=== PATIENT | female | born 1945 | race Caucasian/White ===

== ENCOUNTER → 2017-09-12 | Outpatient (CLI) | payer MEDICARE, OTHER ==
[~2017-09-12] MED LIST: ACDPT PO; ALPR0.25 PO; ALPR0.5T PO; ASPI-84 PO; ASPI-983 PO; BUPR-42 PO; BUPR300T43 PO; CALC-913 PO; CALTRATE PO; CITA10TA PO; LEVO175T31 PO; MULT-974 PO; NAPR220T76; ZALE10CA10
--- NOTE | 2017-09-14 08:51 | Diagnostic Imaging Report ---
Bilateral screening mammogram 2D views with tomosynthesis The current study was also evaluated with a Computer Aided Detection (CAD) system. INDICATION: Screening. No current complaints stated on the questionnaire. COMPARISON: 09/11/16. FINDINGS: The breasts are composed of heterogeneously dense parenchyma which may decrease mammographic sensitivity. Punctate benign-appearing calcifications are seen. Allowing for technique and positional differences, no suspicious change is seen. IMPRESSION: Dense breasts with no definite change. ACR BI-RADS Category 2: Benign findings. Result letter will be mailed to the patient. Note: At least 10% of breast cancer is not imaged by mammography. Dictated by: Dictated on workstation # [id number]
== END ==
LOC: RAD 11:15
PROVIDERS: ATTEND Nurse Practitioner Family
DX: Z12.31 Encounter for screening mammogram for malignant neoplasm of breast (principal)
CPT/HCPCS: 77067

== ENCOUNTER → 2018-03-11 | Outpatient (CLI) | payer MEDICARE, OTHER ==
--- NOTE | 2018-03-11 14:57 | Diagnostic Imaging Report ---
PROCEDURE: CT head without contrast. TECHNIQUE: Multiple contiguous axial images were obtained through the brain without the use of intravenous contrast. INDICATION: Dizziness and headaches as well as blurred vision. COMPARISON: Prior head CT from 12/29/2009. FINDINGS: The ventricles and sulci are stable in appearance. No sulcal effacement is identified. There is no midline shift. No acute intra-axial or extra-axial hemorrhage is seen. The cisterns are patent. The visualized paranasal sinuses are clear. IMPRESSION: No acute intracranial process is detected. Dictated by: Dictated on workstation # [id number]
== END ==
LOC: RAD 12:52
PROVIDERS: ATTEND Nurse Practitioner Family
DX: H53.8 Other visual disturbances (principal); R42 Dizziness and giddiness; R51 Headache
CPT/HCPCS: 70450

== ENCOUNTER → 2018-09-13 | Outpatient (CLI) | payer MEDICARE, OTHER ==
--- NOTE | 2018-09-13 11:55 | Diagnostic Imaging Report ---
INDICATION: Routine screening. Comparison is made with prior mammograms from 09/12/2017 and 09/11/2016. 2-D and 3-D bilateral screening mammography was performed with computer-aided detection (CAD) system. FINDINGS: Both breasts are heterogeneously dense, limiting the sensitivity of mammography. Benign calcifications are identified bilaterally. No dominant mass or malignant-appearing microcalcifications are seen. The axillae are unremarkable. IMPRESSION: No mammographic features suspicious for malignancy are identified. ACR BI-RADS Category 2: Benign findings. Result letter will be mailed to the patient. Note: At least 10% of breast cancer is not imaged by mammography. Dictated by: Dictated on workstation # [id number]
== END ==
LOC: RAD 09:48
PROVIDERS: ATTEND Nurse Practitioner Family
DX: Z12.31 Encounter for screening mammogram for malignant neoplasm of breast (principal)
CPT/HCPCS: 77067

== ENCOUNTER → 2018-10-18 | Outpatient (CLI) | payer MEDICARE, OTHER ==
--- NOTE | 2018-10-18 12:47 | Diagnostic Imaging Report ---
PROCEDURE: CT abdomen and pelvis without contrast. TECHNIQUE: Multiple contiguous axial images were obtained through the abdomen and pelvis without the use of intravenous contrast. INDICATION: Abdominal pain and constipation. No prior studies are available for comparison. The lung bases are clear. The liver and gallbladder are unremarkable. The pancreas and spleen are unremarkable. No adrenal mass is detected. No renal calculi or hydronephrosis is seen. Aorta is heavily calcified but nonaneurysmal. The visualized bowel loops are normal caliber. There is no obstruction. There is bkia-gx-odexcnfh amount of stool in the colon. No ascites is seen. Bladder is unremarkable. Bony structures demonstrate left convexity lumbar scoliotic curvature. Lumbar spondylosis. Severe degenerative changes of left hip are noted. IMPRESSION: Essentially unremarkable noncontrast CT of the abdomen and pelvis. No acute abnormality is detected. Dictated by: Dictated on workstation # [id number]
== END ==
LOC: RAD 12:20
PROVIDERS: ATTEND Nurse Practitioner Family
DX: K59.00 Constipation, unspecified (principal); R63.4 Abnormal weight loss; R10.9 Unspecified abdominal pain
CPT/HCPCS: 74176

== ENCOUNTER → 2018-11-18 | Outpatient (CLI) | payer MEDICARE, OTHER | LOC: CARD 12:47 | PROVIDERS: ATTEND Internal Medicine Cardiovascular Disease | DX: R07.9 Chest pain, unspecified (principal); I10 Essential (primary) hypertension; I08.1 Rheumatic disorders of both mitral and tricuspid valves; F32.9 Major depressive disorder, single episode, unspecified | CPT/HCPCS: 93306 ==

== ENCOUNTER → 2018-11-20 | Outpatient (CLI) | payer MEDICARE, OTHER ==
[~2018-11-20] MED LIST changes: +CATHETER FLUSH 10 ML SYR IV PRN; +REGADENOSON 0.4 MG/5 ML SYR (LEXISCAN) IV ONE
[2018-11-20 09:35] VITALS: BP 143/67
[2018-11-20 09:37] VITALS: BP 121/66
--- NOTE | 2018-11-20 15:52 | STRESS TEST ---
DATE OF SERVICE: 11/20/2018 LEXISCAN MYOVIEW STRESS TEST REPORT REFERRING PHYSICIAN: Harmony Hayward MD. Baseline heart rate is 84, baseline blood pressure 143/90. Baseline EKG is sinus rhythm with no ischemic changes. In summary, the patient was injected with 10.6 mCi of technetium-99 Myoview and the resting images were obtained. Then, the patient received 0.4 mg of Lexiscan followed by 28.8 mCi of technetium-99 Myoview. Throughout the test, there were no EKG changes. The resting and stress images were reviewed and compared in the short axis, horizontal long axis, and vertical long axis views. Review of the images showed good radiotracer uptake with no significant ischemia or infarction. SSS is 0. TID value is 0.88. On the gated images, the left ventricle appeared to be in normal size with normal contractility. Calculated ejection fraction is 73%. CONCLUSION: 1. The patient tolerated Lexiscan well. 2. No significant ischemia or infarction on SPECT images. 3. Normal left ventricular size with normal contractility. Calculated ejection fraction is 73%. Job ID: [id number] DocumentID: [id number] Dictated Date: 11/20/2018 15:36:42 Telephone [employer] Box [employer]or Date: 11/20/2018 15:51:33 Dictated By: LOKI LEÓN MD
== END ==
LOC: CARD 07:38
PROVIDERS: ATTEND Internal Medicine Cardiovascular Disease
DX: R07.9 Chest pain, unspecified (principal); I10 Essential (primary) hypertension; I08.1 Rheumatic disorders of both mitral and tricuspid valves; F32.9 Major depressive disorder, single episode, unspecified
CPT/HCPCS: 78452; 93017

== ENCOUNTER → 2019-05-15 | Outpatient (CLI) | payer MEDICARE, OTHER ==
[~2019-05-15] MED LIST changes: -CATHETER FLUSH 10 ML SYR IV PRN; -REGADENOSON 0.4 MG/5 ML SYR (LEXISCAN) IV ONE
--- NOTE | 2019-05-15 14:03 | Diagnostic Imaging Report ---
INDICATION: Left knee pain. Time of exam 1:27 p.m. FINDINGS: Previous left knee were obtained. Moderate medial and patellofemoral compartmental degenerative change with joint space narrowing and marginal spurring is noted. No fracture, dislocation or effusion is seen. IMPRESSION: Degenerative changes. No acute bony abnormality is detected. Dictated by: Dictated on workstation # [id number]
== END ==
LOC: RAD 13:10
PROVIDERS: ATTEND Nurse Practitioner Family
DX: M17.12 Unilateral primary osteoarthritis, left knee (principal)
CPT/HCPCS: 73562

== ENCOUNTER 2019-07-02 11:24 | Outpatient (CLI) | payer MEDICARE, OTHER ==
[~2019-07-02] VITALS: Ht 165.1 cm; Wt 71.7 kg
[2019-07-02 11:38] VITALS: BP 141/87
[2019-07-02 12:21] LABS: BASOPHILS % (AUTO) 1 % (0-10); EOSINOPHILS # (AUTO) 0.3 10^3/uL (0.0-0.3); EOSINOPHILS % (AUTO) 5 % (0-10); HEMATOCRIT 40 % (35-52); HEMOGLOBIN 13.1 G/DL (11.5-16.0); LYMPHOCYTES % (AUTO) 15 % (12-44); MEAN CORPUSCULAR HEMOGLOBIN 31 PG (25-34); MEAN CORPUSCULAR HGB CONC 33 G/DL (32-36); MEAN CORPUSCULAR VOLUME 94 FL (80-99); MEAN PLATELET VOLUME 9.5 FL (7.4-10.4); MONOCYTES # (AUTO) 0.6 X 10^3 (0.0-1.0); MONOCYTES % (AUTO) 10 % (0-12); NEUTROPHILS # (AUTO) 4.6 X 10^3 (1.8-7.8); NEUTROPHILS % (AUTO) 70 % (42-75); PLATELET COUNT 248 10^3/uL (130-400); RED CELL DISTRIBUTION WIDTH 13.6 % (10.0-14.5); WHITE BLOOD COUNT 6.5 10^3/uL (4.3-11.0)
[2019-07-02 12:38] LABS: CALCIUM 9.7 MG/DL (8.5-10.1); CREATININE SERUM 1.07 MG/DL (0.60-1.30); POTASSIUM 4.7 MMOL/L (3.6-5.0); PROTHROMBIN TIME PATIENT 13.9 SEC (12.2-14.7)
--- NOTE | 2019-07-02 13:10 | Diagnostic Imaging Report ---
CLINICAL INDICATION: Preop chest x-ray for left total knee arthroplasty. No chest complaints. EXAM: Chest x-ray, PA and lateral views. COMPARISON: Chest x-ray dated 12/29/2009. FINDINGS: There are increased lung markings in both lung bases, which have developed in the interim. These findings may be related to atelectasis or scarring. Given that these were present on the prior study, superimposed infiltrates cannot be completely excluded. There is no pleural effusion or pneumothorax. There is interval elevation of the left hemidiaphragm. Pulmonary vasculature and cardiac silhouette are within normal limits. There are degenerative spurs involving the thoracic spine. IMPRESSION: 1: There is interval development of increased lung markings in both lung bases which may represent atelectasis or scarring. Superimposed infiltrates cannot be completely excluded. Comparison to more recent chest x-ray exam would help better evaluate for chronicity. Otherwise, clinical correlation for chest complaints would better evaluate. 2: The remainder of this exam shows no other concern for acute process. Dictated by: Dictated on workstation # [id number]
[2019-07-03 08:35] LABS: BILIRUBIN,URINE NEGATIVE (NEGATIVE); CLARITY,URINE CLEAR; COLOR,URINE YELLOW; GLUCOSE, URINE (UA) NEGATIVE (NEGATIVE); KETONES,URINE NEGATIVE (NEGATIVE); LEUKOCYTE ESTERASE ,URINE NEGATIVE (NEGATIVE); NITRITE,URINE NEGATIVE (NEGATIVE); PH,URINE 7 (5-9); PROTEIN,URINE NEGATIVE (NEGATIVE); UROBILINOGEN,URINE NORMAL (NORMAL)
[2019-07-03 08:42] LABS: BACTERIA,URINE NEGATIVE /HPF; WBC,URINE 0-2 /HPF
[2019-07-03] MEDS ORDERED: BISA10SU58 RC (13:04)
[2019-07-03] MEDS ORDERED: BUPR300T43 PO (13:04)
[2019-07-03] MEDS ORDERED: ALPR0.25 PO ×2 (13:04)
[2019-07-03] MEDS ORDERED: PLEC3TAB PO (13:04)
[2019-07-03] MEDS ORDERED: MAGN400O7 PO (13:04)
[2019-07-03] MEDS ORDERED: LINA290C PO (13:04)
[2019-07-03] MEDS ORDERED: LACT10SO33 PO (13:04)
[2019-07-03] MEDS ORDERED: LEVO175T5 PO (13:04)
[2019-07-03] MEDS ORDERED: MELA3TAB PO (13:04)
[2019-07-03] MEDS ORDERED: LISI10TA2 PO (13:04)
[2019-07-03] MEDS ORDERED: LATA2.5D19 OU (13:04)
[2019-07-03] MEDS ORDERED: NYST15CR TP (13:04)
[2019-07-03] MEDS ORDERED: CHLO473M MM (13:04)
[2019-07-03] MEDS ORDERED: MEMA28CA PO (13:04)
[2019-07-03] MEDS ORDERED: LACT10SO PO (13:04)
[2019-07-03] MEDS ORDERED: SIME125C78 PO (13:04)
[2019-07-03] MEDS ORDERED: PEG15DRO5 OU (13:04)
[2019-07-03] MEDS ORDERED: GUAI600T43 PO (13:04)
[2019-07-03] MEDS ORDERED: DICL100G18 TP (13:04)
[2019-07-03] MEDS ORDERED: OMEP20CA13 PO (13:04)
[2019-07-03] MEDS ORDERED: NAPR220T66 PO ×2 (13:04)
[2019-07-03] MEDS ORDERED: POLY15DR14 OU (14:09)
== END 2019-07-02 12:30 | disposition home or self-care (01) ==
LOC: PREOP 11:24
PROVIDERS: ATTEND Orthopaedic Surgery
DX: Z01.818 Encounter for other preprocedural examination (principal); M17.12 Unilateral primary osteoarthritis, left knee
CPT/HCPCS: 36415; 71046; 80048; 81000; 85025; 85610; 86850; 86900; 86901; 87081

== ENCOUNTER 2019-07-11 13:45 | Emergency (ER) | payer MEDICARE, OTHER ==
[~2019-07-11] VITALS: Ht 165 cm; Wt 72.0 kg
[~2019-07-11 13:45] MED LIST changes: +BISA10SU58 RC; +CHLO473M MM; +DICL100G18 TP; +GUAI600T43 PO; +LACT10SO PO; +LACT10SO33 PO; +LATA2.5D19 OU; +LEVO175T5 PO; +LINA290C PO; +LISI10TA2 PO; +MAGN400O7 PO; +MELA3TAB PO; +MEMA28CA PO; +NAPR220T66 PO; +NYST15CR TP; +OMEP20CA13 PO; +PEG15DRO5 OU; +PLEC3TAB PO; +POLY15DR14 OU; +SIME125C78 PO
--- NOTE | 2019-07-11 15:00 | Diagnostic Imaging Report ---
INDICATION: Fall with head and back pain. TIME OF EXAM: 2:31 p.m. COMPARISON: Comparison is made with prior chest from 07/02/2019. FINDINGS: Left hemidiaphragm is chronically elevated. The lungs appear to be clear. No effusion or pneumothorax is detected. The heart size is normal. There are postop changes in the lower cervical spine. IMPRESSION: No acute cardiopulmonary process is detected. Dictated by: Dictated on workstation # [id number]
--- NOTE | 2019-07-11 15:02 | Diagnostic Imaging Report ---
INDICATION: Fall and right shoulder pain. TIME OF EXAM: 2:32 p.m. Three views of the right shoulder were obtained. FINDINGS: Glenohumeral and acromioclavicular alignment is normal. Acromiohumeral space is normal. No fracture or dislocation is seen. IMPRESSION: No acute bony abnormality is detected. Dictated by: Dictated on workstation # [id number]
--- NOTE | 2019-07-11 15:05 | Diagnostic Imaging Report ---
INDICATION: Fall. Hematoma. COMPARISON: None. 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 The pelvic rings, symphysis and SI joints are intact. There is lower lumbar spondylosis partially visualized. There is no displacement of the air and stool containing rectum. No fracture identified. There are atherosclerotic vascular calcifications. IMPRESSION: No acute appearing abnormality. Dictated by: Dictated on workstation # [id number]
[2019-07-11] MEDS ORDERED: NS IV 1000 ML 1,000 ML IV ONE (15:21)
--- NOTE | 2019-07-11 15:30 | Diagnostic Imaging Report ---
CLINICAL INDICATION: Patient is status post fall with back pain. EXAM: Axial CT scan of the thoracic and lumbar spine performed without IV contrast. Sagittal and coronal reformations were performed. Bone and soft tissue windows were created. Auto Exposure Controls were utilized during the CT exam to meet ALARA standards for radiation dose reduction. COMPARISON: CT scan of the abdomen and pelvis without contrast dated 10/18/2018. FINDINGS: There is interval development of concave deformity involving the anterior aspect of the S3 vertebra and irregularity of the upper aspect anteriorly, which is best seen on the sagittal reformatted sequences series 602, image 33 and axial sequence series 2, image 193. The thoracic and lumbar spine shows no evidence of fracture. There is levoscoliosis of the lumbar spine. There is grade 1 anterolisthesis of L5 on S1. There are hypertrophic spurs seen throughout the thoracic and lumbar spine. There is lower lumbar spine facet arthropathy. There is at least moderate central canal narrowing from posterior spurs at the T12-L1 level and at least mild central canal narrowing at the L1-L2 level with posterior spurs. There is at least moderate central canal narrowing at the L3-L4, L4-L5, and L5-S1 levels with diffuse disc bulge. There is dxdpdxlz-su-cmcqrh lower lumbar spine neural foramen narrowing. IMPRESSION: 1: There is interval development of a concave deformity with mild cortical disruption superiorly involving the anterior aspect of the S3 vertebra concerning for acute fracture. 2: Otherwise, there is no other fracture or dislocation involving the thoracic spine and lumbar spine. 3: There is multilevel thoracic spine and lumbar spine degenerative disease. There is levoscoliosis of the lumbar spine. Results of this report were discussed with Dr. Khushbu Foster via the telephone on 07/11/2019 at 1515 hours. CRITICAL FINDINGS Dictated by: Dictated on workstation # [id number]
--- NOTE | 2019-07-11 15:31 | Diagnostic Imaging Report ---
CLINICAL INDICATION: Patient status post fall and complains of posterior head and low back pain. Patient has large hematoma on head. EXAM: Head CT without IV contrast. Axial CT scan of the cervical spine with sagittal and coronal reformations. Auto Exposure Controls were utilized during the CT exam to meet ALARA standards for radiation dose reduction. COMPARISON: Head CT without contrast dated 03/11/2018. FINDINGS: Head CT: There is a large extracranial scalp hematoma/soft tissue swelling involving the posterior aspect of the head. There is no skull fracture. There is a very minimal area of high density in the left parafalcine frontal region near the vertex which is seen on series 2, image 23 concerning for subdural blood. This was not seen on the prior study. There are subtle patchy areas of low-attenuation white matter changes involving both cerebral hemispheres, likely representing chronic small vessel ischemic disease. There is no hydrocephalus, brain herniation, or midline shift. Basal cisterns are unremarkable. Paranasal sinuses and mastoid air cells are clear. Cervical spine: There is a nondisplaced fracture involving the anterior inferior aspect of the C2 vertebral body which extends into the disc space. There is no extension into the facets. There is bony fusion of the left C1-C2 lateral masses. There is no other cervical spine fracture or dislocation. There is C3 through C6 anterior cervical disc fusion with solid intervertebral bony bridging/fusion seen from the C3 through C6 levels. There is no major bony central canal narrowing. There is severe left C2-C3 and C3-C4 neural foramen narrowing due to facet arthropathy and uncinate spurs. There is no other significant bony neural foramen narrowing. Anterior spurs at the C2-C3 and C6-C7 levels are seen. There is no significant neck soft tissue abnormality. Visualized upper lung rosa show mild atelectasis. IMPRESSION: 1: There is minimal hyperdense subdural blood in the left parafalcine frontal region of the vertex. 2: There is a large extracranial scalp hematoma involving the posterior aspect of the head. There is no skull fracture. 3: There is a nondisplaced fracture involving the anterior inferior aspect of the C2 vertebra. CRITICAL FINDING Results of this report were discussed with Dr. Khushbu Foster via the telephone on 07/11/2019 at 1515 hours. Dictated by: Dictated on workstation # [id number]
[2019-07-11 15:47] VITALS: BP 163/92
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
[2019-07-11 15:55] LABS: BILIRUBIN,URINE NEGATIVE (NEGATIVE); CLARITY,URINE CLEAR; COLOR,URINE YELLOW; GLUCOSE, URINE (UA) NEGATIVE (NEGATIVE); KETONES,URINE NEGATIVE (NEGATIVE); LEUKOCYTE ESTERASE ,URINE NEGATIVE (NEGATIVE); NITRITE,URINE NEGATIVE (NEGATIVE); PH,URINE 6 (5-9); PROTEIN,URINE NEGATIVE (NEGATIVE); UROBILINOGEN,URINE NORMAL (NORMAL)
[2019-07-11 16:09] LABS: BASOPHILS % (AUTO) 0 % (0-10); EOSINOPHILS # (AUTO) 0.4 10^3/uL (0.0-0.3); EOSINOPHILS % (AUTO) 5 % (0-10); HEMATOCRIT 37 % (35-52); HEMOGLOBIN 12.2 G/DL (11.5-16.0); LYMPHOCYTES # (AUTO) 0.7 X 10^3 (1.0-4.0); LYMPHOCYTES % (AUTO) 11 % (12-44); MEAN CORPUSCULAR HEMOGLOBIN 31 PG (25-34); MEAN CORPUSCULAR HGB CONC 33 G/DL (32-36); MEAN CORPUSCULAR VOLUME 96 FL (80-99); MEAN PLATELET VOLUME 9.5 FL (7.4-10.4); MONOCYTES # (AUTO) 0.5 X 10^3 (0.0-1.0); MONOCYTES % (AUTO) 7 % (0-12); NEUTROPHILS % (AUTO) 76 % (42-75); PLATELET COUNT 204 10^3/uL (130-400); RED CELL DISTRIBUTION WIDTH 13.6 % (10.0-14.5); WHITE BLOOD COUNT 6.6 10^3/uL (4.3-11.0)
[2019-07-11] MEDS ORDERED: fentaNYL INJECTION 100 MCG/2 ML AMP ONE (16:20)
[2019-07-11 16:22] LABS: INR 1.2 (0.8-1.4); PROTHROMBIN TIME PATIENT 15.1 SEC (12.2-14.7)
[2019-07-11 16:27] LABS: ALBUMIN 3.7 GM/DL (3.2-4.5); BILIRUBIN,TOTAL 0.4 MG/DL (0.1-1.0); CALCIUM 8.9 MG/DL (8.5-10.1); CREATININE SERUM 1.19 MG/DL (0.60-1.30); MAGNESIUM 2.1 MG/DL (1.6-2.4); POTASSIUM 4.2 MMOL/L (3.6-5.0); TOTAL PROTEIN 5.6 GM/DL (6.4-8.2)
[2019-07-11 16:30] LABS: BACTERIA,URINE TRACE /HPF
[2019-07-11] MEDS ORDERED: fentaNYL INJECTION 100 MCG/2 ML AMP IVP ONE (16:30)
[2019-07-11 16:34] VITALS: BP 160/88
== END 2019-07-11 16:34 | disposition short-term general hospital (02) ==
LOC: EDUNIT# 13:45 → ER 13:46
DX: S06.5X0A Traumatic subdural hemorrhage without loss of consciousness, initial encounter (principal); S12.100A Unspecified displaced fracture of second cervical vertebra, initial encounter for closed fracture; S32.10XA Unspecified fracture of sacrum, initial encounter for closed fracture; G89.29 Other chronic pain; M25.562 Pain in left knee; I10 Essential (primary) hypertension; F03.90 Unspecified dementia, unspecified severity, without behavioral disturbance, psychotic disturbance, mood disturbance, and anxiety; G62.9 Polyneuropathy, unspecified; K21.9 Gastro-esophageal reflux disease without esophagitis; E03.9 Hypothyroidism, unspecified; F41.0 Panic disorder [episodic paroxysmal anxiety]; F32.9 Major depressive disorder, single episode, unspecified; Z88.2 Allergy status to sulfonamides; Z79.82 Long term (current) use of aspirin; Z98.1 Arthrodesis status; Z82.49 Family history of ischemic heart disease and other diseases of the circulatory system; W03.XXXA Other fall on same level due to collision with another person, initial encounter; Y92.129 Unspecified place in nursing home as the place of occurrence of the external cause
CPT/HCPCS: 36415; 51702; 70450; 71045; 72125; 72128; 72131; 72170; 73030; 80053; 81000; 83735; 85025; 85610; 85730; 93041

== ENCOUNTER → 2019-07-28 | Outpatient (CLI) | payer OTHER | LOC: WOUNDCARE 08:09 | PROVIDERS: ATTEND Surgery | DX: B35.0 Tinea barbae and tinea capitis (principal) | CPT/HCPCS: 99213 ==

== ENCOUNTER 2019-09-26 19:56 | Emergency (ER) | payer MEDICARE, OTHER ==
[~2019-09-26] VITALS: Ht 162 cm; Wt 70.5 kg
--- NOTE | 2019-09-26 20:22 | ED Fall/Injury ---
General Chief Complaint: Trauma-Non Activation Stated Complaint: FALL Nursing Triage Note: Pt to Rm 7 via [facility] with c/o left sided shoulder pain after having a fall to left side onto a book case approx 1920 this evening. Pt has a Hx of falls and reports chronic weakness to left side. Pt denies LOC and denies hitting head. Pt states she has chronic neck pain from fracturing C2 in Jun 2019. Pt denies having any acute neck pain at this time. Source: patient, snf records Exam Limitations: other (SPEECH IMPEDIMENT) History of Present Illness Date Seen by Provider: Sep 26, 2019 Time Seen by Provider: 20:40 Initial Comments PT ARRIVES VIA EMS FROM [facility] PT HAD AN UNWITNESSED FALL AT THE FACILITY. PT STATES SHE WAS USING HER WALKER AND LOST HER BALANCE AND FELL AGAINST A BOOK CASE, HITTING HER LEFT SIDE OCCURRED AT 1905 PT STATES SHE HURTS THE MOST ON HER LEFT SHOULDER DOES NOT KNOW IF SHE HIT HER HEAD OR NOT, BUT DENIES LOSS OF CONSCIOUSNESS PT IS WEARING A SOFT CERVICAL COLLAR--PT HAD A FALL 07/11/19 AND SUSTAINED A C-2 FRACTURE AND A SUBDURAL HEMATOMA--NO SURGERY WAS DONE, PER PT. PT ALSO HAS A CLOSED S-3 FRACTURE AT THAT TIME WELL DENIES ANY NEW NECK PAIN OR NEW BACK PAIN PT HAS CHRONIC NECK AND BACK PAIN, AND HAD CERVICAL SPINE FUSION IN 2014 PT HAS CHRONIC LEFT KNEE PAIN AND WAS SUPPOSED TO HAVE HAD SURGERY IN JUN, BUT WAS CANCELLED DUE TO THE ABOVE INJURIES PT ALSO HAS CHRONIC GENERALIZED WEAKNESS, POOR COORDINATION AND FREQUENT FALLS PT IS DNR. PCP: DR. SHULTZ Allergies and Home Medications Allergies Coded Allergies: Sulfa (Sulfonamide Antibiotics) (Unverified Allergy, Mild, Hives, 09/09/07) Home Medications Alprazolam 0.25 Mg Tablet, 0.25 MG PO HS, (Reported) Alprazolam 0.25 Mg Tablet, 0.25 MG PO TID PRN for ANXIETY, (Reported) Aspirin 81 Mg Tablet.dr, 81 MG PO DAILY, (Reported) Bisacodyl 10 Mg Supp.rect, 10 MG RC DAILY PRN for CONSTIPATION-4TH LINE, (Reported) Bupropion HCl 300 Mg Tab.er.24h, 300 MG PO DAILY, (Reported) Chlorhexidine Gluconate 473 Ml Mouthwash, MM DAILY PRN for GUM TISSUE, (Repor faye) Diclofenac Sodium 100 Gm Gel..gram., 4 GM TP QID PRN for JOINT PAIN, (Reported) Guaifenesin 600 Mg Tab.er.12h, 600 MG PO BID PRN for CONGESTION, (Reported) Lactulose 10 Gm/15 Ml Solution, 30 ML PO BID PRN for CONSTIPATION-3RD LINE, (Reported) Lactulose 10 Gm/15 Ml Solution, 15 ML PO Q48H, (Reported) Latanoprost 2.5 Ml Drops, 1 DROP OU HS, (Reported) Levothyroxine Sodium 175 Mcg Tablet, 175 MCG PO DAILY, (Reported) Linaclotide 290 Mcg Capsule, 290 MCG PO DAILY, (Reported) Lisinopril 10 Mg Tablet, 10 MG PO DAILY, (Reported) Magnesium Hydroxide 400 Mg/5 Ml Oral.susp, 30 ML PO DAILY PRN for CONSTIPATION- 7TH LINE, (Reported) Melatonin 3 Mg Tablet, 3 MG PO HS, (Reported) Memantine HCl 28 Mg Cap.spr.24, 28 MG PO DAILY, (Reported) Naproxen Sodium 220 Mg Tablet, 220 MG PO BID PRN for PAIN-MILD, (Reported) Naproxen Sodium 220 Mg Tablet, 220 MG PO HS, (Reported) Nitrofurantoin Monohyd/M-Cryst 100 Mg Capsule, 100 MG PO BID Prescribed by: NORM LUJAN on 09/26/192227 Nystatin 15 Gm Cream..g., TP BID PRN for YEAST, (Reported) Omeprazole 20 Mg Capsule.dr, 20 MG PO DAILY, (Reported) Peg 400/Hypromellose/Glycerin 15 Ml Drops, 1 DROP OU QID, (Reported) Plecanatide 3 Mg Tablet, 3 MG PO DAILY, (Reported) Polyvinyl Alcohol/Povidone 15 Ml Drops, 1 DROP OU Q3H PRN for DRY EYES, (Reported) Simethicone 125 Mg Capsule, 125 MG PO QID PRN for GAS, (Reported) Patient Home Medication List Home Medication List Reviewed: Yes Review of Systems Review of Systems Constitutional: no symptoms reported Eyes: No Symptoms Reported Ears, Nose, Mouth, Throat: no symptoms reported Respiratory: no symptoms reported Cardiovascular: no symptoms reported; No chest pain Gastrointestinal: no symptoms reported; No abdominal pain, No nausea, No vomiting Genitourinary: no symptoms reported Musculoskeletal: see HPI Skin: no symptoms reported Psychiatric/Neurological: Anxiety; Denies Headache, Denies Numbness, Denies Paresthesia, Denies Tingling; Tremors (OF LEFT ARM), Other (CHRONIC GENERALIZED WEAKNESS) Past Oguqugn-Chfbby-Vfrjfl Hx Past Med/Social Hx: Reviewed and Corrections made Patient Social History Alcohol Use: Denies Use Recreational Drug Use: No Smoking Status: Never a Smoker 2nd Hand Smoke Exposure: No Recent Foreign Travel: No Contact w/Someone Who Travel: No Recent Infectious Disease Expo: No Recent Hopitalizations: No Physical Abuse: No Sexual Abuse: No Mistreated: No Fear: No Immunizations Up To Date Tetanus Booster (TDap): Unknown Date of Pneumonia Vaccine: Jul 29, 2014 Date of Influenza Vaccine: Jul 29, 2015 Seasonal Allergies Seasonal Allergies: Yes Past Medical History Surgeries: Yes (BILATERAL HAMMER TOE REPAIR; LEFT KNEE SURGERY; CERVICAL SPINE FUSION 2014; ) Neurological, Orthopedic Respiratory: Yes (SLEEP APNEA PRIOR TO 100 LB WEIGHT LOSS) Sleep Apnea Currently Using CPAP: No Currently Using BIPAP: No Cardiac: Yes (MITRAL VALVE REGURGITATION; ORTHOSTATIC HYPOTENSION) Hypertension Neurological: Yes (COGNITIVE COMMUNICATION DEFICIT/MILD COGNITIVE IMPAIRMENT;SUBDURAL HEMATOMA 07/11/19--NO SURGERY) Dementia, Neuropathy, Traumatic Brain Injury 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 Disorders: No Female 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 Disorders: Denies 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 History: Menopausal Sexually Transmitted Disease: No HIV/AIDS: No Genitourinary: Yes (INCONTINENCE, URGENCY) Gastrointestinal: Yes Gastroesophageal Reflux, Chronic Constipation Musculoskeletal: Yes (CHRONIC NECK AND BACK PAIN; C-SPINE FUSION 2014; C2 FX AND S3 FX 07/11/19--NO SURGERY; CHRONIC LEFT KNEE PAIN--HAS HAD ONE SURGERY AND WAs SUPPOSED TO HAVE HAD ANOTHER SURGERY 06/2019, BUT WAS CANCELLED DUE TO INJURIES SUSTAINED 07/11/19; FREQUENT FALLS, POOR COORDINATION--USES WALKER; GENERALIZED WEAKNESS; SPASMODIC TORTICOLLIS; ) Degenerate Disk Disease, Arthritis, Back Injury, Chronic Back Pain, Fractures Endocrine: Yes (GRAVE'S DISEASE; HX OF OBESITY--LOST OVER 100 LBS) Hypothyroidsim HEENT: Yes Cataract, Dysphagia, Glaucoma Loss of Vision: Denies Hearing Impairment: Hard of Hearing Cancer: No Psychosocial: Yes (PANIC ATTACKS) Sleep Difficulties, Anxiety, Depression Integumentary: No (yeast infection under left breast) Blood Disorders: No Adverse Reaction/Blood Tranf: No Family Medical History Cardiovascular disease 19 FATHER 19 MOTHER Diabetes mellitus 19 MOTHER Myocardial infarction 19 FATHER 19 MOTHER Heart Disease, Hypertension Physical Exam Vital Signs Vital Signs - First Documented 09/26/19 19:56 Temp 36.7 Pulse 91 Resp 17 B/P (MAP) 139/71 (93) Pulse Ox 99 O2 Delivery Room Air Capillary Refill : Less Than 3 Seconds Height, Weight, BMI Height: 5'5.00" Weight: 158lbs. 0.0oz. [id number]; 26.00 BMI Method: General Appearance: other (WEARING SOFT CERVICAL COLLAR; SPEECH IMPEDIMENT; C/O SEVERE PAIN LITERALLY EVERYWHERE SHE IS TOUCHED. ) HEENT: PERRL/EOMI, other (ORAL MUCOSA DRY AND LIPS DRY, CRACKED, PEELING) Neck: other (IN SOFT COLLAR) Cardiovascular: normal peripheral pulses, regular rate, rhythm, no edema, no JVD, no murmur Respiratory: normal breath sounds, no respiratory distress, no accessory muscle use, other (DIFFUSE CHEST WALL TENDERNESS. NO EXTERNAL EVIDENCE OF TRAUMA, NO CREPITANCE OR SUB Q AIR) Peripheral Pulses: 2+ Dorsalis Pedis (R), 2+ Left Dors-Pedis (L), 2+ Radial Pulses (R), 2+ Radial Pulses (L) Gastrointestinal: normal bowel sounds, soft, no organomegaly, no pulsatile mass; No distended, No guarding, No rebound; tenderness (DIFFUSE TENDERNESS); No hernia, No mass Back: other (DIFFUSE TENDERNESS TO ENTIRE BACK) Extremities: no pedal edema, no calf tenderness, normal capillary refill, other (DIFFUSE TENDERNESS TO ALL EXTREMITIES. NO EXTERNAL EVIDENCE OF TRAUMA, EXCEPT FAINT BRUISING TO LEFT WRIST; MOVES ALL EXTREMITIES, MOTOR/SENSORY/VASCULAR INTACT. WEARING KNEE HIGH COMPRESSION STOCKINGS. 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, no motor/sensory deficits, alert, oriented x 3 (BUT SOME LIMITED MEMORY/COGNITIVE IMPAIRMENT), other (ANXIOUS, TREMOR OF LEFT ARM--STOPS PT CALMS AND WARM BLANKETS GIVEN; SPEECH IMPEDIMENT) Skin: normal color, warm/dry Bu[place] Coma Score Best Eye Response: (4) Open Spontaneously Best Verbal Response: (5) Oriented Best Motor Response: (6) Obeys Commands Raheel Total: 15 Progress/Results/Core Measures Results/Orders Lab Results Laboratory Tests Test 09/26/19 20:17 09/26/19 22:00 Range/Units White Blood Count 6.8 4.3-11.0 10^3/uL Red Blood Count 4.01 L 4.35-5.85 10^6/uL Hemoglobin 12.6 11.5-16.0 G/DL Hematocrit 38 35-52 % Mean Corpuscular Volume 95 80-99 FL Mean Corpuscular Hemoglobin 31 25-34 PG Mean Corpuscular Hemoglobin Concent 33 32-36 G/DL Red Cell Distribution Width 14.2 10.0-14.5 % Platelet Count 230 130-400 10^3/uL Mean Platelet Volume 9.7 7.4-10.4 FL Neutrophils (%) (Auto) 63 42-75 % Lymphocytes (%) (Auto) 21 12-44 % Monocytes (%) (Auto) 10 0-12 % Eosinophils (%) (Auto) 6 0-10 % Basophils (%) (Auto) 0 0-10 % Neutrophils # (Auto) 4.3 1.8-7.8 X 10^3 Lymphocytes # (Auto) 1.4 1.0-4.0 X 10^3 Monocytes # (Auto) 0.7 0.0-1.0 X 10^3 Eosinophils # (Auto) 0.4 H 0.0-0.3 10^3/uL Basophils # (Auto) 0.0 0.0-0.1 10^3/uL Prothrombin Time 14.5 12.2-14.7 SEC INR Comment 1.1 0.8-1.4 Activated Partial Thromboplast Time 26 24-35 SEC Sodium Level 143 135-145 MMOL/L Potassium Level 4.4 3.6-5.0 MMOL/L Chloride Level 110 H 98-107 MMOL/L Carbon Dioxide Level 22 21-32 MMOL/L Anion Gap 11 5-14 MMOL/L Blood Urea Nitrogen 28 H 7-18 MG/DL Creatinine 1.32 H 0.60-1.30 MG/DL Estimat Glomerular Filtration Rate 40 BUN/Creatinine Ratio 21 Glucose Level 78 70-105 MG/DL Calcium Level 9.7 8.5-10.1 MG/DL Corrected Calcium 9.5 8.5-10.1 MG/DL Total Bilirubin 0.4 0.1-1.0 MG/DL Aspartate Amino Transf (AST/SGOT) 20 5-34 U/L Alanine Aminotransferase (ALT/SGPT) 23 0-55 U/L Alkaline Phosphatase 111 40-136 U/L Total Protein 6.5 6.4-8.2 GM/DL Albumin 4.2 3.2-4.5 GM/DL Amylase Level 42 25-125 U/L Lipase 40 8-78 U/L Urine Color YELLOW Urine Clarity CLEAR Urine pH 6.0 5-9 Urine Specific Filley 1.015 L 1.016-1.022 Urine Protein NEGATIVE NEGATIVE Urine Glucose (UA) NEGATIVE NEGATIVE Urine Ketones NEGATIVE NEGATIVE Urine Nitrite NEGATIVE NEGATIVE Urine Bilirubin NEGATIVE NEGATIVE Urine Urobilinogen 0.2 < = 1.0 MG/DL Urine Leukocyte Esterase TRACE NEGATIVE Urine RBC (Auto) NEGATIVE NEGATIVE Urine RBC NONE /HPF Urine WBC 5-10 H /HPF Urine Crystals NONE /LPF Urine Bacteria MODERATE H /HPF Urine Casts NONE /LPF Urine Mucus NEGATIVE /LPF Urine Culture Indicated YES My Orders Orders - NORM LUJAN DO Ed Iv/Invasive Line Start (09/26/19 20:12) Monitor-Rhythm Ecg Trace Only (09/26/19 20:12) Straight Cath For Spec.-Adult (09/26/19 20:12) Ct Head/Cervical Spine Wo (09/26/19 20:12) Ct Thoracic/Lumbar Spine Wo (09/26/19 20:12) Amylase (09/26/19 20:12) Cbc With Automated Diff (09/26/19 20:12) Comprehensive Metabolic Panel (09/26/19 20:12) Lipase (09/26/19 20:12) Protime With Inr (09/26/19 20:12) Partial Thromboplastin Time (09/26/19 20:12) Ua Culture If Indicated (09/26/19 20:12) Chest 1 View, Ap/Pa Only (09/26/19 20:12) Shoulder, Left, 3 Views (09/26/19 20:12) Shoulder, Right, 3 Views (09/26/19 20:12) Forearm, Left, 2 Views (09/26/19 20:12) Forearm, Right, 2 Views (09/26/19 20:12) Humerus, Left, 2 Views (09/26/19 20:12) Humerus, Right, 2 Views (09/26/19 20:12) Femur, Left, 2 Views (09/26/19 20:12) Femur, Right, 2 Views (09/26/19 20:12) Tibia/Fibula, Left, 2 Views (09/26/19 20:12) Tibia/Fibula, Right, 2 Views (09/26/19 20:12) Pelvis (09/26/19 20:12) Ct Chest/Abdomen/Pelvis Wo (09/26/19 20:12) Urine Culture (09/26/19 22:00) Nitrofurantoin Capsule,Macro (Macrobid C (09/26/19 22:30) Medications Given in ED Current Medications Medications Dose Ordered Sig/Caroline Route Start Time Stop Time Status Last Admin Dose Admin Nitrofurantoin Macrocrystals 100 mg ONCE ONCE PO 09/26/19 22:30 09/26/19 22:31 DC 09/26/19 22:34 100 MG Vital Signs/I&O 09/26/19 09/27/19 19:56 02:50 Temp 36.7 36.7 Pulse 91 91 Resp 17 17 B/P (MAP) 139/71 (93) 128/75 (93) Pulse Ox 99 99 O2 Delivery Room Air Blood Pressure Mean: 93 POS Progress Progress Note : Progress Note UNEVENTFUL ER STAY DAUGHTER ARRIVES LATER TO BE WITH PT PT HAD NO COMPLAINTS FOR REMAINDER OF ER STAY MARKED DELAY IN GETTING PT BACK TO [facility]--WAITING ON THEIR TRANSPORTATION SERVICE TO TAKE PT BACK Diagnostic Imaging Comments XRAYS--ALL PER RADIOLOGIST REPORTS AT 2132: PELVIS--NO ACUTE PROCESS CXR--NO ACUTE PROCESS LEFT SHOULDER--NO ACUTE PROCESS RIGHT SHOULDER--NO ACUTE PROCESS LEFT HUMERUS--NO ACUTE PROCESS RIGHT HUMERUS--NO ACUTE PROCESS LEFT FOREARM--NO ACUTE PROCESS RIGHT FOREARM--NO ACUTE PROCESS LEFT FEMUR--NO ACUTE PROCESS RIGHT FEMUR--NO ACUTE PROCESS LEFT TIB-FIB--NO ACUTE PROCESS RIGHT TIB-FIB--NO ACUTE PROCESS CT HEAD/CERVICAL SPINE--NO ACUTE PROCESS, POST SURGICAL CHANGES C3-C7--PER RADIOLOGIST REPORT AT 2141 CT THORACIC/LUMBAR SPINE--NO ACUTE PROCESS, PER RADIOLOGIST REPORT AT 2141 CT CHEST/ABDOMEN/PELVIS--NO ACUTE PROCESS, PER RADIOLOGIST REPORT AT 2149 Reviewed: Reviewed by Me Departure Impression Primary Impression: S/P FALL FROM STANDING Additional Impressions: Multiple contusions UTI (urinary tract infection) Disposition: 03 XFER SNF Condition: Stable Departure-Patient Inst. Referrals: CHIN SHULTZ MD (PCP/Family) Primary Care Physician Patient Instructions: Contusion (DC), Preventing Falls in the Older Adult, Urinary Tract Infection, Adult (DC) Add. Discharge Instructions: CONTINUE YOUR MEDICATIONS PRESCRIBED FOLLOW UP WITH DR. SHULTZ NEEDED All discharge instructions reviewed with patient and/or family. Voiced understanding. Scripts Nitrofurantoin Monohyd/M-Cryst (Macrobid 100 mg Capsule) 100 Mg Capsule 100 MG PO BID, #20 CAP Prov: NORM LUJAN DO 09/26/19 NORM LUJAN DO Sep 26, 2019 20:22 POS
[2019-09-26 20:24] LABS: BASOPHILS % (AUTO) 0 % (0-10); EOSINOPHILS # (AUTO) 0.4 10^3/uL (0.0-0.3); EOSINOPHILS % (AUTO) 6 % (0-10); HEMATOCRIT 38 % (35-52); HEMOGLOBIN 12.6 G/DL (11.5-16.0); LYMPHOCYTES # (AUTO) 1.4 X 10^3 (1.0-4.0); LYMPHOCYTES % (AUTO) 21 % (12-44); MEAN CORPUSCULAR HEMOGLOBIN 31 PG (25-34); MEAN CORPUSCULAR HGB CONC 33 G/DL (32-36); MEAN CORPUSCULAR VOLUME 95 FL (80-99); MEAN PLATELET VOLUME 9.7 FL (7.4-10.4); MONOCYTES # (AUTO) 0.7 X 10^3 (0.0-1.0); MONOCYTES % (AUTO) 10 % (0-12); NEUTROPHILS # (AUTO) 4.3 X 10^3 (1.8-7.8); NEUTROPHILS % (AUTO) 63 % (42-75); PLATELET COUNT 230 10^3/uL (130-400); RED CELL DISTRIBUTION WIDTH 14.2 % (10.0-14.5); WHITE BLOOD COUNT 6.8 10^3/uL (4.3-11.0)
[2019-09-26 20:38] LABS: INR 1.1 (0.8-1.4); PROTHROMBIN TIME PATIENT 14.5 SEC (12.2-14.7)
[2019-09-26 20:47] LABS: ALBUMIN 4.2 GM/DL (3.2-4.5); BILIRUBIN,TOTAL 0.4 MG/DL (0.1-1.0); CALCIUM 9.7 MG/DL (8.5-10.1); CREATININE SERUM 1.32 MG/DL (0.60-1.30); POTASSIUM 4.4 MMOL/L (3.6-5.0); TOTAL PROTEIN 6.5 GM/DL (6.4-8.2)
--- NOTE | 2019-09-26 21:18 | Diagnostic Imaging Report ---
INDICATION: Injury from a fall Portable chest 8:34 PM Heart size and pulmonary vascularity are normal. Lungs are clear. There are no effusions or pneumothoraces. IMPRESSION: No acute abnormalities in the chest Dictated by: Dictated on workstation # [id number]
--- NOTE | 2019-09-26 21:19 | Diagnostic Imaging Report ---
INDICATION: Injury from a fall. EXAMINATION: AP view of the pelvis. FINDINGS: Advanced degenerative changes of both hips with synovial pinning. There is no fracture or dislocation. IMPRESSION: Advanced degenerative changes of both hips. No acute abnormality seen. Dictated by: Dictated on workstation # [id number]
--- NOTE | 2019-09-26 21:19 | Diagnostic Imaging Report ---
INDICATION: Injury from a fall Two views of the right forearm show no fracture or dislocation. IMPRESSION: Negative right forearm Dictated by: Dictated on workstation # [id number]
--- NOTE | 2019-09-26 21:20 | Diagnostic Imaging Report ---
INDICATION: Right shoulder injury from a fall. EXAMINATION: Three views of the right shoulder were obtained. FINDINGS: No fracture, dislocation or other acute abnormality. IMPRESSION: Negative right shoulder. Dictated by: Dictated on workstation # [id number]
--- NOTE | 2019-09-26 21:20 | Diagnostic Imaging Report ---
INDICATION: Left arm injury from a fall. EXAMINATION: Two views of the left humerus were obtained. FINDINGS: No fracture or dislocation. IMPRESSION: Negative left humerus. Dictated by: Dictated on workstation # [id number]
--- NOTE | 2019-09-26 21:20 | Diagnostic Imaging Report ---
INDICATION: Right humerus pain from a fall. EXAMINATION: Two views of the right humerus. FINDINGS: No fracture or dislocation. IMPRESSION: Negative right humerus. Dictated by: Dictated on workstation # [id number]
--- NOTE | 2019-09-26 21:20 | Diagnostic Imaging Report ---
INDICATION: Left forearm injury from a fall Two views of the left forearm show no fracture or dislocation. IMPRESSION: Negative left forearm Dictated by: Dictated on workstation # [id number]
--- NOTE | 2019-09-26 21:21 | Diagnostic Imaging Report ---
INDICATION: Left shoulder injury from a fall 3 views of the left shoulder show no fracture, dislocation or other acute abnormalities. IMPRESSION: Negative left shoulder Dictated by: Dictated on workstation # [id number]
--- NOTE | 2019-09-26 21:21 | Diagnostic Imaging Report ---
INDICATION: Right femur injury from a fall. EXAMINATION: Two views of the right femur were obtained. FINDINGS: No fracture or dislocation. IMPRESSION: Negative right femur. Dictated by: Dictated on workstation # [id number]
--- NOTE | 2019-09-26 21:21 | Diagnostic Imaging Report ---
INDICATION: Left leg injury from a fall. EXAMINATION: AP and lateral views of the left femur were obtained. FINDINGS: Degenerative changes of the left hip. There is no fracture or dislocation. IMPRESSION: No acute abnormality seen in the left femur. Dictated by: Dictated on workstation # [id number]
--- NOTE | 2019-09-26 21:21 | Diagnostic Imaging Report ---
INDICATION: Right lower leg injury from a fall. EXAMINATION: AP and lateral views of the right tibia-fibula. FINDINGS: No fracture or dislocation. IMPRESSION: Negative right tibia and fibula. Dictated by: Dictated on workstation # [id number]
--- NOTE | 2019-09-26 21:22 | Diagnostic Imaging Report ---
INDICATION: Left lower leg pain from a fall. EXAMINATION: AP and lateral views of left tibia-fibula. FINDINGS: No fracture or dislocation. IMPRESSION: Negative left tibia and fibula. Dictated by: Dictated on workstation # [id number]
--- NOTE | 2019-09-26 21:30 | Diagnostic Imaging Report ---
PROCEDURE: CT thoracic and lumbar spine without contrast. TECHNIQUE: Multiple contiguous axial images were obtained through the thoracic and lumbar spine without the use of intravenous contrast. Sagittal and coronal reformations were then performed. INDICATION: Injury from a fall. FINDINGS: Vertebral body height and alignment appear normal. There is scoliotic curvature of the spine. There is no acute fracture seen. IMPRESSION: Scoliosis with degenerative changes. No acute abnormality is seen. Dictated by: Dictated on workstation # [id number]
--- NOTE | 2019-09-26 21:31 | Diagnostic Imaging Report ---
PROCEDURE: CT head and CT cervical spine without contrast. TECHNIQUE: Multiple contiguous axial images were obtained through the brain and cervical spine without the use of intravenous contrast. Sagittal and coronal reformations through the cervical spine were then performed. Auto Exposure Controls were utilized during the CT exam to meet ALARA standards for radiation dose reduction. INDICATION: Head injury from a fall CT HEAD: The ventricles are normal size, shape and position. There are no masses or hemorrhages. There are no extra-axial fluid collections. IMPRESSION: Negative CT head CT cervical spine: There are postsurgical changes from anterior cervical discectomy and fusion C3-C6. The fusion appears stable. Hardware is intact. No acute fracture or dislocation. IMPRESSION: Postsurgical changes from anterior cervical discectomy and fusion from C3 through C6. No acute abnormality seen. Dictated by: Dictated on workstation # [id number]
--- NOTE | 2019-09-26 21:49 | Diagnostic Imaging Report ---
PROCEDURE: CT chest, abdomen, and pelvis without contrast. TECHNIQUE: Multiple contiguous axial images were obtained through the chest, abdomen, and pelvis without the use of intravenous contrast. Auto Exposure Controls were utilized during the CT exam to meet ALARA standards for radiation dose reduction. INDICATION: Injury from a fall Lungs are clear. There are no effusions or pneumothoraces. There is no hilar or mediastinal lymphadenopathy. There are no acute rib fractures. IMPRESSION: Unremarkable CT chest CT abdomen and pelvis: Liver appears normal. Gallbladder is unremarkable. Pancreas is normal. Spleen is normal. Kidneys and adrenals are normal. Pancreas is normal. Small bowel is not dilated. Urinary bladder is normal. Uterus is surgically absent. There is no intraperitoneal free air or free fluid. IMPRESSION: Negative CT abdomen and pelvis Dictated by: Dictated on workstation # [id number]
[2019-09-26 22:07] LABS: BILIRUBIN,URINE NEGATIVE (NEGATIVE); CLARITY,URINE CLEAR; COLOR,URINE YELLOW; GLUCOSE, URINE (UA) NEGATIVE (NEGATIVE); KETONES,URINE NEGATIVE (NEGATIVE); LEUKOCYTE ESTERASE ,URINE TRACE (NEGATIVE); NITRITE,URINE NEGATIVE (NEGATIVE); PROTEIN,URINE NEGATIVE (NEGATIVE)
[2019-09-26 22:20] LABS: BACTERIA,URINE MODERATE /HPF
[2019-09-26] MEDS ORDERED: NITR-65 PO (22:28)
[2019-09-26] MEDS ORDERED: NITROFURANTOIN 100 MG (MACROBID) CAPSULE PO ONE (22:30)
--- NOTE | 2019-09-26 22:40 | NUR ---
Pt up with assistance to put clothing on.
--- NOTE | 2019-09-26 22:52 | NUR ---
[facility] contacted regarding transport back to facility.
--- NOTE | 2019-09-27 02:15 | NUR ---
Pt's assisted facility called at this time and voiced that they can not get a hold of transportation staff to [place] pick[place] pt.
[2019-09-27 02:50] VITALS: BP 128/75
== END 2019-09-27 03:05 ==
LOC: EDUNIT# 19:56 → ER 19:57
DX: S60.212A Contusion of left wrist, initial encounter (principal); N39.0 Urinary tract infection, site not specified; I10 Essential (primary) hypertension; F03.90 Unspecified dementia, unspecified severity, without behavioral disturbance, psychotic disturbance, mood disturbance, and anxiety; K21.9 Gastro-esophageal reflux disease without esophagitis; G62.9 Polyneuropathy, unspecified; E66.9 Obesity, unspecified; E03.9 Hypothyroidism, unspecified; F41.0 Panic disorder [episodic paroxysmal anxiety]; F32.9 Major depressive disorder, single episode, unspecified; R40.2142 Coma scale, eyes open, spontaneous, at arrival to emergency department; R40.2252 Coma scale, best verbal response, oriented, at arrival to emergency department; R40.2362 Coma scale, best motor response, obeys commands, at arrival to emergency department; Z68.26 Body mass index [BMI] 26.0-26.9, adult; Z87.820 Personal history of traumatic brain injury; Z87.81 Personal history of (healed) traumatic fracture; Z88.2 Allergy status to sulfonamides; Z79.82 Long term (current) use of aspirin; Z98.1 Arthrodesis status; Z82.49 Family history of ischemic heart disease and other diseases of the circulatory system; W01.190A Fall on same level from slipping, tripping and stumbling with subsequent striking against furniture, initial encounter; Y92.129 Unspecified place in nursing home as the place of occurrence of the external cause
CPT/HCPCS: 36415; 51701; 70450; 71045; 71250; 72125; 72128; 72131; 72170; 73030; 73060; 73090; 73552; 73590; 74176; 80053; 81000; 82150; 83690; 85025; 85610; 85730; 87077; 87088; 93041

== ENCOUNTER 2019-11-12 12:28 | Emergency (ER) | payer MEDICARE, OTHER ==
[~2019-11-12] VITALS: Ht 162.6 cm; Wt 70.5 kg
[~2019-11-12 12:28] MED LIST changes: -CHLO473M MM; -MELA3TAB PO; +MELA3TAB65 PO; +NFCHLORHGL MM; +NITR-65 PO; +OMEP-280 PO; -OMEP20CA13 PO
[2019-11-12 12:51] LABS: BASOPHILS % (AUTO) 0 % (0-10); EOSINOPHILS # (AUTO) 0.2 10^3/uL (0.0-0.3); EOSINOPHILS % (AUTO) 3 % (0-10); HEMATOCRIT 36 % (35-52); HEMOGLOBIN 11.7 G/DL (11.5-16.0); LYMPHOCYTES # (AUTO) 0.9 X 10^3 (1.0-4.0); LYMPHOCYTES % (AUTO) 15 % (12-44); MEAN CORPUSCULAR HEMOGLOBIN 32 PG (25-34); MEAN CORPUSCULAR HGB CONC 33 G/DL (32-36); MEAN CORPUSCULAR VOLUME 97 FL (80-99); MEAN PLATELET VOLUME 10.1 FL (7.4-10.4); MONOCYTES # (AUTO) 0.6 X 10^3 (0.0-1.0); MONOCYTES % (AUTO) 11 % (0-12); NEUTROPHILS # (AUTO) 4.2 X 10^3 (1.8-7.8); NEUTROPHILS % (AUTO) 71 % (42-75); PLATELET COUNT 247 10^3/uL (130-400); RED CELL DISTRIBUTION WIDTH 14.9 % (10.0-14.5); WHITE BLOOD COUNT 5.9 10^3/uL (4.3-11.0)
--- NOTE | 2019-11-12 13:11 | ED Fall/Injury ---
General Chief Complaint: Trauma-Non Activation Stated Complaint: FALL Nursing Triage Note: Pt reports discomfort to medial neck and medial neck. Pt noted to be tender upon palpation to bilat hips. Pelvis stable. No bruising or swelling noted. Pt arrives in soft c-collar worn at all times d/t hx cervical fx. Source: patient Exam Limitations: no limitations History of Present Illness Date Seen by Provider: Nov 12, 2019 Time Seen by Provider: 12:30 Initial Comments To ER with reports of fall. She was standing up from the toilet when she became dizzy causing her fall. She has pain in her neck. She was already wearing a soft cervical collar following a cervical fracture in June 2019. She also complains of bilateral hip pain and low back pain. Location Injury Occurred: [facility] Occurred: just prior to arrival Severity: moderate Injuries/Pain Location: neck Loss of Consciousness: no loss of consciousness Associated Symptoms (Fall): Headache, Neck Pain Allergies and Home Medications Allergies Coded Allergies: Sulfa (Sulfonamide Antibiotics) (Unverified Allergy, Mild, Hives, 09/09/07) Home Medications Alprazolam 0.25 Mg Tablet, 0.25 MG PO HS, (Reported) Alprazolam 0.25 Mg Tablet, 0.25 MG PO TID PRN for ANXIETY, (Reported) Aspirin 81 Mg Tablet.dr, 81 MG PO DAILY, (Reported) Bisacodyl 10 Mg Supp.rect, 10 MG RC DAILY PRN for CONSTIPATION-4TH LINE, (Reported) Bupropion HCl 300 Mg Tab.er.24h, 300 MG PO DAILY, (Reported) Chlorhexidine Gluconate 473 Ml Mouthwash, MM DAILY PRN for GUM TISSUE, (Reported) Diclofenac Sodium 100 Gm Gel..gram., 4 GM TP QID PRN for JOINT PAIN, (Reported) Guaifenesin 600 Mg Tab.er.12h, 600 MG PO BID PRN for CONGESTION, (Reported) Lactulose 10 Gm/15 Ml Solution, 30 ML PO BID PRN for CONSTIPATION-3RD LINE, (Reported) Lactulose 10 Gm/15 Ml Solution, 15 ML PO Q48H, (Reported) Latanoprost 2.5 Ml Drops, 1 DROP OU HS, (Reported) Levothyroxine Sodium 175 Mcg Tablet, 175 MCG PO DAILY, (Reported) Linaclotide 290 Mcg Capsule, 290 MCG PO DAILY, (Reported) Lisinopril 10 Mg Tablet, 10 MG PO DAILY, (Reported) Magnesium Hydroxide 400 Mg/5 Ml Oral.susp, 30 ML PO DAILY PRN for CONSTIPATION- 7TH LINE, (Reported) Melatonin 3 Mg Tablet, 3 MG PO HS, (Reported) Memantine HCl 28 Mg Cap.spr.24, 28 MG PO DAILY, (Reported) Naproxen Sodium 220 Mg Tablet, 220 MG PO BID PRN for PAIN-MILD, (Reported) Naproxen Sodium 220 Mg Tablet, 220 MG PO HS, (Reported) Nitrofurantoin Monohyd/M-Cryst 100 Mg Capsule, 100 MG PO BID Prescribed by: NORM LUJAN on 09/26/192227 Nystatin 15 Gm Cream..g., TP BID PRN for YEAST, (Reported) Omeprazole 20 Mg Capsule.dr, 20 MG PO DAILY, (Reported) Peg 400/Hypromellose/Glycerin 15 Ml Drops, 1 DROP OU QID, (Reported) Plecanatide 3 Mg Tablet, 3 MG PO DAILY, (Reported) Polyvinyl Alcohol/Povidone 15 Ml Drops, 1 DROP OU Q3H PRN for DRY EYES, (Reported) Simethicone 125 Mg Capsule, 125 MG PO QID PRN for GAS, (Reported) Patient Home Medication List Home Medication List Reviewed: Yes Review of Systems Review of Systems Constitutional: see HPI Eyes: No Symptoms Reported Ears, Nose, Mouth, Throat: no symptoms reported Respiratory: no symptoms reported Cardiovascular: no symptoms reported Genitourinary: no symptoms reported Musculoskeletal: see HPI, neck pain Skin: no symptoms reported Psychiatric/Neurological: No Symptoms Reported Past Czzluib-Kmbhiv-Jqjyec Hx Patient Social History 2nd Hand Smoke Exposure: No Recent Foreign Travel: No Contact w/Someone Who Travel: No Recent Infectious Disease Expo: No Recent Hopitalizations: No Immunizations Up To Date Tetanus Booster (TDap): Unknown Date of Pneumonia Vaccine: Jul 29, 2014 Date of Influenza Vaccine: Jul 29, 2015 Seasonal Allergies Seasonal Allergies: Yes Past Medical History Surgeries: Yes Neurological, Orthopedic Respiratory: Yes (SLEEP APNEA PRIOR TO 100 LB WEIGHT LOSS) Sleep Apnea Currently Using CPAP: No Currently Using BIPAP: No Cardiac: Yes (MITRAL VALVE REGURGITATION; ORTHOSTATIC HYPOTENSION) Hypertension Neurological: Yes Dementia, Neuropathy, Traumatic Brain Injury 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 Disorders: No Female 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 Disorders: Denies 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 Sexually Transmitted Disease: No HIV/AIDS: No Genitourinary: Yes (INCONTINENCE, URGENCY) Gastrointestinal: Yes Gastroesophageal Reflux, Chronic Constipation Musculoskeletal: Yes Degenerate Disk Disease, Arthritis, Back Injury, Chronic Back Pain, Fractures Endocrine: Yes (GRAVE'S DISEASE; HX OF OBESITY--LOST OVER 100 LBS) Hypothyroidsim HEENT: Yes Cataract, Dysphagia, Glaucoma Loss of Vision: Denies Hearing Impairment: Hard of Hearing Cancer: No Psychosocial: Yes (PANIC ATTACKS) Sleep Difficulties, Anxiety, Depression Integumentary: No (yeast infection under left breast) Blood Disorders: No Adverse Reaction/Blood Tranf: No Family Medical History Cardiovascular disease 19 FATHER 19 MOTHER Diabetes mellitus 19 MOTHER Myocardial infarction 19 FATHER 19 MOTHER Heart Disease, Hypertension Physical Exam Vital Signs Vital Signs - First Documented 11/12/19 12:28 Temp 36.8 Pulse 83 Resp 17 B/P (MAP) 144/78 (100) Pulse Ox 100 O2 Delivery Room Air Capillary Refill : Less Than 3 Seconds Height, Weight, BMI Height: 5'5.00" Weight: 158lbs. 0.0oz. 71.638580ls; 26.00 BMI Method: General Appearance: WD/WN, no apparent distress HEENT: PERRL/EOMI, normal ENT inspection, TMs normal, other (dry mucous membranes) Neck: supple, normal inspection, tender midline Cardiovascular: regular rate, rhythm, no murmur Respiratory: lungs clear, normal breath sounds, no respiratory distress, no accessory muscle use Gastrointestinal: normal bowel sounds, non tender, soft Extremities: normal range of motion, non-tender Neurologic/Psychiatric: alert, normal mood/affect, oriented x 3 Skin: normal color, warm/dry Raheel Coma Score Best Eye Response: (4) Open Spontaneously Best Verbal Response: (5) Oriented Best Motor Response: (6) Obeys Commands [place] Total: 15 Progress/Results/Core Measures Results/Orders Lab Results Laboratory Tests Test 11/12/19 12:40 11/12/19 14:42 Range/Units White Blood Count 5.9 4.3-11.0 10^3/uL Red Blood Count 3.69 L 4.35-5.85 10^6/uL Hemoglobin 11.7 11.5-16.0 G/DL Hematocrit 36 35-52 % Mean Corpuscular Volume 97 80-99 FL Mean Corpuscular Hemoglobin 32 25-34 PG Mean Corpuscular Hemoglobin Concent 33 32-36 G/DL Red Cell Distribution Width 14.9 H 10.0-14.5 % Platelet Count 247 130-400 10^3/uL Mean Platelet Volume 10.1 7.4-10.4 FL Neutrophils (%) (Auto) 71 42-75 % Lymphocytes (%) (Auto) 15 12-44 % Monocytes (%) (Auto) 11 0-12 % Eosinophils (%) (Auto) 3 0-10 % Basophils (%) (Auto) 0 0-10 % Neutrophils # (Auto) 4.2 1.8-7.8 X 10^3 Lymphocytes # (Auto) 0.9 L 1.0-4.0 X 10^3 Monocytes # (Auto) 0.6 0.0-1.0 X 10^3 Eosinophils # (Auto) 0.2 0.0-0.3 10^3/uL Basophils # (Auto) 0.0 0.0-0.1 10^3/uL Sodium Level 143 135-145 MMOL/L Potassium Level 4.6 3.6-5.0 MMOL/L Chloride Level 113 H 98-107 MMOL/L Carbon Dioxide Level 20 L 21-32 MMOL/L Anion Gap 10 5-14 MMOL/L Blood Urea Nitrogen 35 H 7-18 MG/DL Creatinine 1.29 0.60-1.30 MG/DL Estimat Glomerular Filtration Rate 41 BUN/Creatinine Ratio 27 Glucose Level 86 70-105 MG/DL Calcium Level 9.4 8.5-10.1 MG/DL Corrected Calcium 9.4 8.5-10.1 MG/DL Total Bilirubin 0.3 0.1-1.0 MG/DL Aspartate Amino Transf (AST/SGOT) 28 5-34 U/L Alanine Aminotransferase (ALT/SGPT) 31 0-55 U/L Alkaline Phosphatase 98 40-136 U/L Total Protein 6.3 L 6.4-8.2 GM/DL Albumin 4.0 3.2-4.5 GM/DL Urine Color YELLOW Urine Clarity CLEAR Urine pH 6.5 5-9 Urine Specific [place] 1.010 L 1.016-1.022 Urine Protein NEGATIVE NEGATIVE Urine Glucose (UA) NEGATIVE NEGATIVE Urine Ketones NEGATIVE NEGATIVE Urine Nitrite NEGATIVE NEGATIVE Urine Bilirubin NEGATIVE NEGATIVE Urine Urobilinogen 0.2 < = 1.0 MG/DL Urine Leukocyte Esterase NEGATIVE NEGATIVE Urine RBC (Auto) NEGATIVE NEGATIVE Urine RBC NONE /HPF Urine WBC RARE /HPF Urine Squamous Epithelial Cells RARE /HPF Urine Crystals NONE /LPF Urine Bacteria NEGATIVE /HPF Urine Casts NONE /LPF Urine Mucus NEGATIVE /LPF Urine Culture Indicated NO My Orders Orders - BARBARA CATALAN APRN Cbc With Automated Diff (11/12/19 12:44) Comprehensive Metabolic Panel (11/12/19 12:44) Ua Culture If Indicated (11/12/19 12:44) Ed Iv/Invasive Line Start (11/12/19 12:44) Ct Head/Cervical Spine Wo (11/12/19 12:44) Ct Thoracic/Lumbar Spine Wo (11/12/19 12:44) Pelvis (11/12/19 12:44) Chest 1 View, Ap/Pa Only (11/12/19 12:44) Ketorolac Injection (Toradol Injection) (11/12/19 14:15) Ns Iv 1000 Ml (Sodium Chloride 0.9%) (11/12/19 14:30) Medications Given in ED Current Medications Medications Dose Ordered Sig/Caroline Route Start Time Stop Time Status Last Admin Dose Admin Ketorolac Tromethamine 15 mg ONCE ONCE IVP 11/12/19 14:15 11/12/19 14:16 DC 11/12/19 14:20 15 MG Vital Signs/I&O 11/12/19 12:28 Temp 36.8 Pulse 83 Resp 17 B/P (MAP) 144/78 (100) Pulse Ox 100 O2 Delivery Room Air Blood Pressure Mean: 100 Diagnostic Imaging Diagonstic Imaging: CT Comments NAME: MARSHAL KIM MED REC#: [id number] PT STATUS: REG ER : 1945 PHYSICIAN: BARBARA CATALAN APRN ADMIT DATE: 11/12/19/ER Draft Date of Exam:11/12/19 CT THORACIC/LUMBAR SPINE WO PROCEDURE: CT thoracic and lumbar spine without contrast. TECHNIQUE: Multiple contiguous axial images were obtained through the thoracic and lumbar spine without the use of intravenous contrast. Sagittal and coronal reformations were then performed. All CT scans use one or more of the following dose optimizing techniques: automated exposure control, MA and/or KvP adjustment based on patient size and exam type or iterative reconstruction. INDICATION: Fall. COMPARISON: Correlation is made with prior CT from 09/26/2019. FINDINGS: Right convexity thoracic scoliotic curvature with left convexity lumbar scoliotic curvature is again noted. There is normal thoracic kyphotic curvature and lumbar lordotic curvature. Thoracic and lumbar vertebral body heights are maintained. No acute compression fractures are seen. There is generalized degenerative disc and facet disease. Paraspinous tissues are unremarkable. IMPRESSION: Thoracolumbar spondylosis and scoliosis. No acute fracture is detected. Dictated on workstation # [id number] Dict: 11/12/19 1309 Trans: 11/12/19 1314 [facility] [id number] Interpreted by: CHRISSY TANG MD Electronically signed by: NAME: MARSHAL KIM [facility] REC#: [id number] PT STATUS: REG ER : 1945 PHYSICIAN: BARBARA CATALAN APRN ADMIT DATE: 11/12/19/ER Draft Date of Exam:11/12/19 CT HEAD/CERVICAL SPINE WO PROCEDURE: CT head and CT cervical spine without contrast. TECHNIQUE: Multiple contiguous axial images were obtained through the brain and cervical spine without the use of intravenous contrast. Sagittal and coronal reformations through the cervical spine were then performed. Auto Exposure Controls were utilized during the CT exam to meet ALARA standards for radiation dose reduction. All CT scans use one or more of the following dose optimizing techniques: automated exposure control, MA and/or KvP adjustment based on patient size and exam type or iterative reconstruction. INDICATION: Fall. COMPARISON: Comparison is made with prior CT from 09/26/2019. FINDINGS: CT head: The ventricles and sulci are stable in appearance. No sulcal effacement or midline shift is detected. No acute intra-axial or extra-axial hemorrhage is detected. Cisterns are patent. Visualized paranasal sinuses are clear. IMPRESSION: No acute intracranial process is detected. CT cervical spine: Postop changes of ACDF with anterior plate and screws extending from C3 through C6 is noted. A previously noted nondisplaced fracture through the anterior inferior aspect of C2 vertebral body is again noted and similar to prior exam. Fracture line remains clearly visible. No new fracture is seen. No hardware fracture or loosening is identified. Bony spinal canal appears patent. Odontoid is intact. Prevertebral tissues are normal. IMPRESSION: Stable CT cervical spine when compared with study dating back 07/11/2019. Fracture at the anterior-inferior aspect of C2 vertebral body is unchanged with fracture line remaining clearly visible. ACDF C3 through C6 appears stable. Dictated on workstation # [id number] Dict: 11/12/19 1304 Trans: 11/12/19 1312 [facility] [id number] Interpreted by: CHRISSY TANG MD Electronically signed by: Departure Impression Primary Impression: Fall from standing Qualified Codes: W19.XXXA - Unspecified fall, initial encounter Additional Impression: Chronic neck and back pain Disposition: 01 HOME, SELF-CARE Condition: Stable Departure-Patient Inst. Decision time for Depature: 14:59 Referrals: CHIN SHULTZ MD (PCP/Family) Primary Care Physician Patient Instructions: Preventing Falls Add. Discharge Instructions: 1. Return to ER for any concerns 2. Follow-up with your doctor next week All discharge instructions reviewed with patient and/or family. Voiced understanding. BARBARA CATALAN OFFICE CLERK ASSISTANT Nov 12, 2019 13:11
[2019-11-12 13:12] LABS: BILIRUBIN,TOTAL 0.3 MG/DL (0.1-1.0); CALCIUM 9.4 MG/DL (8.5-10.1); CREATININE SERUM 1.29 MG/DL (0.60-1.30); POTASSIUM 4.6 MMOL/L (3.6-5.0); TOTAL PROTEIN 6.3 GM/DL (6.4-8.2)
--- NOTE | 2019-11-12 13:15 | Diagnostic Imaging Report ---
PROCEDURE: CT thoracic and lumbar spine without contrast. TECHNIQUE: Multiple contiguous axial images were obtained through the thoracic and lumbar spine without the use of intravenous contrast. Sagittal and coronal reformations were then performed. All CT scans use one or more of the following dose optimizing techniques: automated exposure control, MA and/or KvP adjustment based on patient size and exam type or iterative reconstruction. INDICATION: Fall. COMPARISON: Correlation is made with prior CT from 09/26/2019. FINDINGS: Right convexity thoracic scoliotic curvature with left convexity lumbar scoliotic curvature is again noted. There is normal thoracic kyphotic curvature and lumbar lordotic curvature. Thoracic and lumbar vertebral body heights are maintained. No acute compression fractures are seen. There is generalized degenerative disc and facet disease. Paraspinous tissues are unremarkable. IMPRESSION: Thoracolumbar spondylosis and scoliosis. No acute fracture is detected. Dictated by: Dictated on workstation # [id number]
--- NOTE | 2019-11-12 13:52 | Diagnostic Imaging Report ---
INDICATION: Neck and back pain. Frontal chest obtained at 01:07 p.m. Heart and mediastinal silhouette are normal in appearance. Lungs appear clear. There is no pneumothorax or pleural fluid. There is mild scoliotic change. Patient has had previous lower cervical spine fusion. IMPRESSION: No acute process in the chest. Dictated by: Dictated on workstation # [id number]
--- NOTE | 2019-11-12 13:53 | Diagnostic Imaging Report ---
INDICATION: Pelvic pain. TECHNIQUE/COMPARISON: An AP pelvis was obtained at 1:08 PM with comparison made to 09/26/2019. FINDINGS: There is no acute fracture or acute bony abnormality. Advanced degenerative change of the left hip joint is noted with severe joint space narrowing, subchondral sclerosis, and subchondral geode formation. There is moderate degenerative change of the right hip. There is no acute finding. IMPRESSION: Degenerative findings of both hips, left worse than right. No acute finding. Dictated by: Dictated on workstation # [id number]
[2019-11-12] MEDS ORDERED: KETOROLAC 30 MG/ML VIAL IVP ONE (14:15)
[2019-11-12] MEDS ORDERED: NS IV 1000 ML 1,000 ML IV SCH (14:30)
[2019-11-12 14:49] LABS: BILIRUBIN,URINE NEGATIVE (NEGATIVE); CLARITY,URINE CLEAR; COLOR,URINE YELLOW; GLUCOSE, URINE (UA) NEGATIVE (NEGATIVE); KETONES,URINE NEGATIVE (NEGATIVE); LEUKOCYTE ESTERASE ,URINE NEGATIVE (NEGATIVE); NITRITE,URINE NEGATIVE (NEGATIVE); PH,URINE 6.5 (5-9); PROTEIN,URINE NEGATIVE (NEGATIVE)
[2019-11-12 14:55] LABS: BACTERIA,URINE NEGATIVE /HPF; SQUAMOUS EPITHELIAL CELL,UR RARE /HPF; WBC,URINE RARE /HPF
--- NOTE | 2019-11-12 15:00 | NUR ---
Spoke with nurse, Ning, regarding pt findings and care recieved in ED. Ning voices no further c/o or concerns. This RN requests trasnportation back to facility.
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
[2019-11-12 15:30] VITALS: BP 152/72
== END 2019-11-12 15:40 | disposition home or self-care (01) ==
LOC: EDUNIT# 12:35 → ER 12:36
DX: G89.29 Other chronic pain (principal); M54.2 Cervicalgia; M54.89 Other dorsalgia; I10 Essential (primary) hypertension; F03.90 Unspecified dementia, unspecified severity, without behavioral disturbance, psychotic disturbance, mood disturbance, and anxiety; G62.9 Polyneuropathy, unspecified; K21.9 Gastro-esophageal reflux disease without esophagitis; E03.9 Hypothyroidism, unspecified; F41.0 Panic disorder [episodic paroxysmal anxiety]; F32.9 Major depressive disorder, single episode, unspecified; Z87.828 Personal history of other (healed) physical injury and trauma; Z88.2 Allergy status to sulfonamides; Z79.82 Long term (current) use of aspirin; Z82.49 Family history of ischemic heart disease and other diseases of the circulatory system; Z68.26 Body mass index [BMI] 26.0-26.9, adult
CPT/HCPCS: 36415; 51702; 70450; 71045; 72125; 72128; 72131; 72170; 80053; 81000; 85025; 96361; 96374

== ENCOUNTER → 2021-02-03 | Outpatient (CLI) | payer MEDICARE, OTHER ==
[~2021-02-03] MED LIST changes: +ASPI-1238 PO; -ASPI-983 PO; -LACT10SO PO; +LACT10SO3 PO; -LISI10TA2 PO; +LISI10TA25 PO; +MELA3TAB39 PO; -MELA3TAB65 PO; -OMEP-280 PO; +OMEP20CA18 PO; -PLEC3TAB PO; +PLEC3TAB2 PO
--- NOTE | 2021-02-03 13:22 | Diagnostic Imaging Report ---
Indication: Routine screening Correlation is made with prior mammogram 09/13/2018 and 09/12/2017. 2-D and 3-D bilateral screening mammography was performed with CAD. Both breasts are heterogeneously dense, limiting sensitivity of mammography. The parenchymal pattern is stable. No dominant mass or malignant appearing microcalcifications are seen. There are benign calcifications present. Axillae are unremarkable. IMPRESSION: BI-RADS Category 2 No mammographic features suspicious for malignancy are identified. ACR BI-RADS Category 2: Benign findings. Result letter will be mailed to the patient. Note: At least 10% of breast cancer is not imaged by mammography. Dictated by: Dictated on workstation # [id number]
== END ==
LOC: RAD 11:10
PROVIDERS: ATTEND Nurse Practitioner Family
DX: Z12.31 Encounter for screening mammogram for malignant neoplasm of breast (principal)
CPT/HCPCS: 77063; 77067

== ENCOUNTER → 2021-04-15 | Outpatient (CLI) | payer MEDICARE, OTHER ==
--- NOTE | 2021-04-15 12:28 | Diagnostic Imaging Report ---
Indication: Left foot pain 3 views of the left foot shows generalized osteopenia. There is no fracture or dislocation. IMPRESSION: No acute abnormality seen in the foot Dictated by: Dictated on workstation # [id number]
--- NOTE | 2021-04-15 12:35 | Diagnostic Imaging Report ---
INDICATION: LEG PAIN/SWELLING TECHNIQUE: Multiple real-time grayscale images were obtained over the left lower extremity in various projections, bilaterally. Additional duplex Doppler and color Doppler images were also obtained. CORRELATION STUDY: None FINDINGS: Color and grayscale sonographic images demonstrate no intraluminal defect within the visualized portion of the common femoral, superficial femoral and/or popliteal veins to suggest thrombus formation. These vessels demonstrate normal response to compression and augmentation. No soft tissue fluid collection. IMPRESSION: 1. Negative for deep venous thrombosis of the left leg. Dictated by: Dictated on workstation # [id number]
== END ==
LOC: RAD 11:30
PROVIDERS: ATTEND Nurse Practitioner Family
DX: M25.572 Pain in left ankle and joints of left foot (principal); R60.0 Localized edema
CPT/HCPCS: 73630

== ENCOUNTER → 2021-05-04 | Outpatient (CLI) | payer MEDICARE, OTHER | LOC: CARD 13:30 | PROVIDERS: ATTEND Physician Assistant | DX: I10 Essential (primary) hypertension (principal); R07.9 Chest pain, unspecified | CPT/HCPCS: 93306 ==

== ENCOUNTER 2021-06-27 18:40 | Emergency (ER) | payer MEDICARE, OTHER ==
[~2021-06-27] VITALS: Ht 165 cm; Wt 90.7 kg
[2021-06-27] MEDS ORDERED: LACTATED RINGERS 1,000 ML IV ONE (19:00)
[2021-06-27] MEDS ORDERED: ONDANSETRON 4 MG/2 ML (SDV) Z0FRAN IVP ONE (19:00)
--- NOTE | 2021-06-27 19:08 | ED GI ---
General Stated Complaint: DIARRHEA/VOMITING Source of Information: Patient (PT WITH DEMENTIA BUT IS FAIR HISTORIAN ABOUT CURRENT SYMPTOMS), [facility] Records History of Present Illness Date Seen by Provider: Jun 27, 2021 Time Seen by Provider: 18:40 Initial Comments PT ARRIVES VIA EMS FROM [facility]IA [facility] PT STATES SHE HAS BEEN SICK SINCE Sunday06/24/21 C/O UPPER ABDOMINAL PAIN C/O NAUSEA AND VOMITING--VOMITED X 2 ON SUNDAY, VOMITED X 1 TODAY HAS HAD DIARRHEA, BUT HAD 4 "NORMAL" BM'S TODAY HAS NOT BEEN URINATING VERY MUCH HAS NOT BEEN ABLE TO EAT OR DRINK NO KNOWN FEVER C/O MILD HEADACHE SINCE SUNDAY, OFF AND ON C/O SOME BODY ACHES OFF AND ON DOES NOT KNOW IF SHE HAS LOST TASTE OR SMELL, BECAUSE SHE HASN'T EATEN ANYTHING NO CHEST PAIN NO SHORTNESS OF BREATH NO COUGH OR URI SYMPTOMS PCP: DR SHULTZ Allergies and Home Medications Allergies Coded Allergies: Sulfa (Sulfonamide Antibiotics) (Unverified Allergy, Mild, Hives, ) Home Medications Alprazolam 0.25 Mg Tablet, 0.25 MG PO HS, (Reported) Alprazolam 0.25 Mg Tablet, 0.25 MG PO TID PRN for ANXIETY, (Reported) Aspirin 81 Mg Tablet.dr, 81 MG PO DAILY, (Reported) Bisacodyl 10 Mg Supp.rect, 10 MG RC DAILY PRN for CONSTIPATION-4TH LINE, (Reported) Bupropion HCl 300 Mg Tab.er.24h, 300 MG PO DAILY, (Reported) Chlorhexidine Gluconate 473 Ml Mouthwash, MM DAILY PRN for GUM TISSUE, (Reported) Diclofenac Sodium 100 Gm Gel..gram., 4 GM TP QID PRN for JOINT PAIN, (Reported) Guaifenesin 600 Mg Tab.er.12h, 600 MG PO BID PRN for CONGESTION, (Reported) Lactulose 10 Gm/15 Ml Solution, 30 ML PO BID PRN for CONSTIPATION-3RD LINE, (Reported) Lactulose 10 Gm/15 Ml Solution, 15 ML PO Q48H, (Reported) Latanoprost 2.5 Ml Drops, 1 DROP OU HS, (Reported) Levothyroxine Sodium 175 Mcg Tablet, 175 MCG PO DAILY, (Reported) Linaclotide 290 Mcg Capsule, 290 MCG PO DAILY, (Reported) Lisinopril 10 Mg Tablet, 10 MG PO DAILY, (Reported) Magnesium Hydroxide 400 Mg/5 Ml Oral.susp, 30 ML PO DAILY PRN for CONSTIPATION- 7TH LINE, (Reported) Melatonin 3 Mg Tablet, 3 MG PO HS, (Reported) Memantine HCl 28 Mg Cap.spr.24, 28 MG PO DAILY, (Reported) Naproxen Sodium 220 Mg Tablet, 220 MG PO BID PRN for PAIN-MILD, (Reported) Naproxen Sodium 220 Mg Tablet, 220 MG PO HS, (Reported) Nitrofurantoin Monohyd/M-Cryst 100 Mg Capsule, 100 MG PO BID Prescribed by: NORM LUJAN on 09/26/192227 Nystatin 15 Gm Cream..g., TP BID PRN for YEAST, (Reported) Omeprazole 20 Mg Capsule.dr, 20 MG PO DAILY, (Reported) Ondansetron 4 Mg Tab.rapdis, 4 MG PO Q4H Prescribed by: NORM LUJAN on 06/27/212124 Peg 400/Hypromellose/Glycerin 15 Ml Drops, 1 DROP OU QID, (Reported) Plecanatide 3 Mg Tablet, 3 MG PO DAILY, (Reported) Polyvinyl Alcohol/Povidone 15 Ml Drops, 1 DROP OU Q3H PRN for DRY EYES, (Reported) Simethicone 125 Mg Capsule, 125 MG PO QID PRN for GAS, (Reported) Patient Home Medication List Home Medication List Reviewed: Yes Review of Systems Review of Systems Constitutional: malaise, weakness EENTM: No Symptoms Reported Respiratory: No Symptoms Reported Cardiovascular: No Symptoms Reported Gastrointestinal: See HPI, Abdominal Pain, Diarrhea, Nausea, Poor Appetite, Poor Fluid Intake, Vomiting Genitourinary: See HPI Musculoskeletal: see HPI Skin: no symptoms reported Psychiatric/Neurological: See HPI, Headache Endocrine: No Symptoms Reported Hematologic/Lymphatic: No Symptoms Reported Past Okppiml-Zlrpru-Dfhfib Hx Patient Social History Smoking Status: Never a Smoker Substance use?: No Alcohol Use?: No Immunizations Up To Date Tetanus Booster (TDap): Unknown Seasonal Allergies Seasonal Allergies: Yes Past Medical History Surgery/Hospitalization HX: C-SPINE FUSION/SURGERY 2014 BILATERAL HAMMER TOE SURGERY LEFT KNEE SURGERY Surgeries: Yes Hysterectomy, Neurological, Orthopedic Respiratory: Yes (SLEEP APNEA PRIOR TO 100 LB WEIGHT LOSS) Sleep Apnea Currently Using CPAP: No Currently Using BIPAP: No Cardiac: Yes (MITRAL VALVE REGURGITATION; ORTHOSTATIC HYPOTENSION) Hypertension, Valvular Heart Disease Neurological: Yes (COGNITIVE COMMUNICATION DEFICIT/MILD COGNITIVE IMPAIRMENT;SUBDURAL HEMATOMA) Dementia, Neuropathy, Traumatic Brain Injury 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 Disorders: Yes Female 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 Disorders: Denies TARIFF COUNSEL History: Hysterectomy, Menopausal Sexually Transmitted Disease: No HIV/AIDS: No Genitourinary: Yes (INCONTINENCE, URGENCY) Gastrointestinal: Yes Gastroesophageal Reflux, Chronic Constipation Musculoskeletal: Yes (CHRONIC NECK/BACK PAIN; C-2 FRACTURE; S1 FRACTURE) Degenerate Disk Disease, Arthritis, Back Injury, Chronic Back Pain, Fractures Endocrine: Yes (GRAVE'S DISEASE; HX OF OBESITY--LOST OVER 100 LBS) Hypothyroidsim HEENT: Yes Cataract, Dysphagia, Glaucoma Loss of Vision: Denies Hearing Impairment: Hard of Hearing Cancer: No Psychosocial: Yes (PANIC ATTACKS) Sleep Difficulties, Anxiety, Depression Integumentary: No (yeast infection under left breast) Blood Disorders: No Adverse Reaction/Blood Tranf: No Family Medical History Cardiovascular disease 19 FATHER 19 MOTHER Diabetes mellitus 19 MOTHER Myocardial infarction 19 FATHER 19 MOTHER Heart Disease, Hypertension ADDITIONAL PMH: -HAD A FALL 07/11/19 AND SUSTAINED A C-2 FRACTURE AND SUBDURAL HEMATOMA, AND S-3 FRACTURE--NO SURGERY DONE. -PT DID HAVE PREVIOUS CERVICAL SPINE FUSION IN 2014 FOR CHRONIC NECK PAIN -CHRONIC NECK AND BACK PAIN -CHRONIC LEFT KNEE PAIN -CHRONIC GENERALIZED WEAKNESS, POOR COORDINATION AND FREQUENT FALLS -SPASMODIC TORTICOLLOSIS -SPEECH IMPEDIMENT PT IS DNR Physical Exam Vital Signs Vital Signs - First Documented 06/27/21 18:43 Temp 36.6 Pulse 95 Resp 15 B/P (MAP) 129/77 (94) Pulse Ox 97 O2 Delivery Room Air Capillary Refill : Height/Weight/BMI Height: 5'5.00" Weight: 158lbs. 0.0oz. [id number]; 26.00 BMI Method: General Appearance: WD/WN, no apparent distress, other (ANXIOUS; TREMULOUS; SPEECH IMPEDIMENT) HEENT: PERRL/EOMI, other (ORAL MUCOSA DRY) Neck: normal inspection Respiratory: normal breath sounds, no respiratory distress, no accessory muscle use Cardiovascular: regular rate, rhythm, no murmur Gastrointestinal: soft; No distended, No guarding, No rebound; tenderness (DIFFUSE ABDOMINAL TENDERNESS. 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 II-XII nml as tested, no motor/sensory deficits, alert, normal mood/affect, oriented x 3 Skin: normal color, warm/dry; No rash Progress/Results/Core Measures Results/Orders Lab Results Laboratory Tests Test 06/27/21 19:00 06/27/21 19:01 06/27/21 19:20 Range/Units White Blood Count 6.3 4.3-11.0 10^3/uL Red Blood Count 4.75 3.80-5.11 10^6/uL Hemoglobin 12.7 11.5-16.0 g/dL Hematocrit 41 35-52 % Mean Corpuscular Volume 87 80-99 fL Mean Corpuscular Hemoglobin 27 25-34 pg Mean Corpuscular Hemoglobin Concent 31 L 32-36 g/dL Red Cell Distribution Width 17.3 H 10.0-14.5 % Platelet Count 250 130-400 10^3/uL Mean Platelet Volume 9.5 9.0-12.2 fL Immature Granulocyte % (Auto) 0 % Neutrophils (%) (Auto) 79 H 42-75 % Lymphocytes (%) (Auto) 9 L 12-44 % Monocytes (%) (Auto) 8 0-12 % Eosinophils (%) (Auto) 4 0-10 % Basophils (%) (Auto) 1 0-10 % Neutrophils # (Auto) 5.0 1.8-7.8 10^3/uL Lymphocytes # (Auto) 0.6 L 1.0-4.0 10^3/uL Monocytes # (Auto) 0.5 0.0-1.0 10^3/uL Eosinophils # (Auto) 0.3 0.0-0.3 10^3/uL Basophils # (Auto) 0.0 0.0-0.1 10^3/uL Immature Granulocyte # (Auto) 0.0 0.0-0.1 10^3/uL Sodium Level 140 135-145 MMOL/L Potassium Level 3.8 3.6-5.0 MMOL/L Chloride Level 104 98-107 MMOL/L Carbon Dioxide Level 23 21-32 MMOL/L Anion Gap 13 5-14 MMOL/L Blood Urea Nitrogen 27 H 7-18 MG/DL Creatinine 1.07 0.60-1.30 MG/DL Estimat Glomerular Filtration Rate 50 BUN/Creatinine Ratio 25 Glucose Level 125 H 70-105 MG/DL Calcium Level 9.7 8.5-10.1 MG/DL Corrected Calcium 9.7 8.5-10.1 MG/DL Magnesium Level 2.0 1.6-2.4 MG/DL Total Bilirubin 0.5 0.1-1.0 MG/DL Aspartate Amino Transf (AST/SGOT) 22 5-34 U/L Alanine Aminotransferase (ALT/SGPT) 28 0-55 U/L Alkaline Phosphatase 126 40-136 U/L Total Protein 6.9 6.4-8.2 GM/DL Albumin 4.0 3.2-4.5 GM/DL Amylase Level 37 25-125 U/L Lipase 14 8-78 U/L TSH [place] Testing 3.22 0.35-4.94 UIU/ML Influenza Type A (RT-PCR) Not Detected Not Detecte Influenza Type B (RT-PCR) Not Detected Not Detecte SARS-CoV-2 RNA (RT-PCR) Not Detected Not Detecte Urine Color YELLOW Urine Clarity CLEAR Urine pH 5.5 5-9 Urine Specific [place] 1.025 H 1.016-1.022 Urine Protein NEGATIVE NEGATIVE Urine Glucose (UA) NEGATIVE NEGATIVE Urine Ketones NEGATIVE NEGATIVE Urine Nitrite NEGATIVE NEGATIVE Urine Bilirubin NEGATIVE NEGATIVE Urine Urobilinogen 0.2 < = 1.0 MG/DL Urine Leukocyte Esterase NEGATIVE NEGATIVE Urine RBC (Auto) NEGATIVE NEGATIVE Urine RBC NONE /HPF Urine WBC NONE /HPF Urine Crystals NONE /LPF Urine Bacteria FEW H /HPF Urine Casts NONE /LPF Urine Mucus SMALL H /LPF Urine Culture Indicated NO My Orders Orders - NORM LUJAN DO Ed Iv/Invasive Line Start (06/27/21 18:48) Monitor-Rhythm Ecg Trace Only (06/27/21 18:48) Amylase (06/27/21 18:48) Cbc With Automated Diff (06/27/21 18:48) Comprehensive Metabolic Panel (06/27/21 18:48) Lipase (06/27/21 18:48) Magnesium (06/27/21 18:48) Ua Culture If Indicated (06/27/21 18:48) Ondansetron Injection (Zofran Injectio (06/27/21 19:00) Ed Iv/Invasive Line Start (06/27/21 18:48) Lactated Ringers (Lr 1000 Ml Iv Solution (06/27/21 19:00) Covid 19 Inhouse Test (06/27/21 18:48) Influenza A And B By Pcr (06/27/21 18:48) Ekg Tracing (06/27/21 18:50) Catheter(Urinary) Insert & Ass 03,15 (06/27/21 19:01) Thyroid Analyzer (06/27/21 19:05) Ct Abdomen/Pelvis Wo (06/27/21 19:53) Acute Abd Series (06/27/21 19:53) Medications Given in ED Current Medications Medications Dose Ordered Sig/Caroline Route Start Time Stop Time Status Last Admin Dose Admin Lactated Ringer's 1,000 ml @ 0 mls/hr Q0M ONCE IV 06/27/21 19:00 06/27/21 19:01 DC 06/27/21 19:05 1,000 MLS/HR Ondansetron HCl 4 mg ONCE ONCE IVP 06/27/21 19:00 06/27/21 19:01 DC 06/27/21 19:05 4 MG Vital Signs/I&O 06/27/21 18:43 Temp 36.6 Pulse 95 Resp 15 B/P (MAP) 129/77 (94) Pulse Ox 97 O2 Delivery Room Air Progress Progress Note : Progress Note PLACED IN ISOLATION ROOM PPE WORN COVID-19 TESTING PERFORMED GIVEN IV FLUIDS AND ZOFRAN NO VOMITING OR DIARRHEA DURING ER STAY PT STATES SHE "FEELS SO MUCH BETTER" AT DISMISSAL Initial ECG Impression Date: Jun 27, 2021 Initial ECG Impression Time: 19:12 Initial ECG Rate: 89 Initial ECG Rhythm: Normal Sinus (ARTIFACT) Diagnostic Imaging Comments CT ABDOMEN/PELVIS--PER RADIOLOGIST REPORT AT 2121 There are limitations for evaluation of the abdominal organs, neoplastic processes, abscess, and limited evaluation of the vasculature relating to the lack of intravenous contrast. There are mild linear opacities in the imaged lung bases most likely reflecting atelectasis and/or scarring. The heart is not enlarged. There is no pericardial effusion. The liver is unremarkable in size and contour. The gallbladder is very mildly distended. There is no CT apparent gallstone or evidence of acute cholecystitis. There is no biliary ductal dilation. Unremarkable limited noncontrast assessment of the pancreatic parenchyma. The spleen is normal in size. The adrenal glands are unremarkable. Limited noncontrast evaluation of the renal parenchyma is unremarkable. The urinary collecting systems are not distended. There is no identified renal or ureteral stone. The urinary bladder is grossly unremarkable in appearance. There is streak artifact from a left total hip prosthesis which does limit evaluation of portions of the pelvis. The intestinal tract is not distended. The appendix is unremarkable. There is no free intraperitoneal air. There is no drainable fluid collection. There is no free pelvic fluid. There are atherosclerotic calcifications. There is no identified abnormally enlarged lymph node in the abdomen or pelvis specifically meeting CT size criteria for adenopathy. There is severe osteoarthritis of the right hip. There are multilevel degenerative changes of the spine. There is scoliosis. There is a benign lucent lesion with internal fat involving the L3 vertebral body. There is no identified acute bony abnormality. IMPRESSION: CT ABDOMEN AND PELVIS. 1. No identified acute abnormality in the abdomen or pelvis. ABDOMEN XRAYS--PER RADIOLOGIST REPORT AT 2121 FINDINGS: The cardiac silhouette is at the upper limits of normal in size, though similar to the prior examination. No significant pulmonary vascular congestion. Decreased lung volumes with mild bibasilar interstitial opacities. Chronic elevation of the left hemidiaphragm. No significant pleural effusion. No pneumothorax. Post surgical changes within the cervical spine again seen. No acute osseous abnormality within the chest. Severe apex left curvature of the thoracolumbar spine. Gas and stool is noted throughout the colon, extending into the lower pelvis. No dilated loops of small bowel. No differential air-fluid levels. No free air. No suspicious calcifications overlying the renal shadows. Left hip arthroplasty. Scattered osseous degenerative changes without acute osseous abnormality. IMPRESSION: Low lung volumes with mild bibasilar atelectasis and/or pneumonitis. No evidence of bowel obstruction or free air. Additional postsurgical and chronic findings as described above, including significant apex left curvature of the spine. Reviewed: Reviewed by Me Departure Impression Primary Impression: Dehydration Additional Impression: Gastroenteritis Disposition: 03 XFER SNF Condition: Stable Departure-Patient Inst. Decision time for Depature: 21:25 Referrals: CHIN SHULTZ MD (PCP/Family) Primary Care Physician Patient Instructions: Dehydration, Adult (DC), [id number] Add. Discharge Instructions: CLEAR LIQUIDS--WATER, BROTH, JELLO, GATORADE TOMORROW IF YOU ARE BETTER, ADD BRATS DIET TO CLEAR LIQUIDS--BANANAS, RICE, APPLESAUCE, TOAST, SALTINES CONTINUE YOUR REGULAR MEDICATIONS PRESCRIBED, EXCEPT INCREASE OMEPRAZOLE TO 40 MG DAILY X 1 WEEK FOLLOW UP WITH DR. SHULTZ IF SYMPTOMS PERSIST Scripts Ondansetron (Ondansetron Odt) 4 Mg Tab.rapdis 4 MG PO Q4H for Nausea/Vomiting, #10 TAB Prov: NORM LUJAN DO 06/27/21 NORM LUJAN DO Jun 27, 2021 19:08
[2021-06-27 19:21] LABS: BASOPHILS % (AUTO) 1 % (0-10); EOSINOPHILS # (AUTO) 0.3 10^3/uL (0.0-0.3); EOSINOPHILS % (AUTO) 4 % (0-10); HEMATOCRIT 41 % (35-52); HEMOGLOBIN 12.7 g/dL (11.5-16.0); LYMPHOCYTES # (AUTO) 0.6 10^3/uL (1.0-4.0); LYMPHOCYTES % (AUTO) 9 % (12-44); MEAN CORPUSCULAR HEMOGLOBIN 27 pg (25-34); MEAN CORPUSCULAR HGB CONC 31 g/dL (32-36); MEAN CORPUSCULAR VOLUME 87 fL (80-99); MEAN PLATELET VOLUME 9.5 fL (9.0-12.2); MONOCYTES # (AUTO) 0.5 10^3/uL (0.0-1.0); MONOCYTES % (AUTO) 8 % (0-12); NEUTROPHILS % (AUTO) 79 % (42-75); PLATELET COUNT 250 10^3/uL (130-400); WHITE BLOOD COUNT 6.3 10^3/uL (4.3-11.0)
[2021-06-27 19:47] LABS: BILIRUBIN,TOTAL 0.5 MG/DL (0.1-1.0); CALCIUM 9.7 MG/DL (8.5-10.1); CREATININE SERUM 1.07 MG/DL (0.60-1.30); POTASSIUM 3.8 MMOL/L (3.6-5.0); TOTAL PROTEIN 6.9 GM/DL (6.4-8.2)
[2021-06-27 19:48] LABS: BILIRUBIN,URINE NEGATIVE (NEGATIVE); CLARITY,URINE CLEAR; COLOR,URINE YELLOW; GLUCOSE, URINE (UA) NEGATIVE (NEGATIVE); KETONES,URINE NEGATIVE (NEGATIVE); LEUKOCYTE ESTERASE ,URINE NEGATIVE (NEGATIVE); NITRITE,URINE NEGATIVE (NEGATIVE); PH,URINE 5.5 (5-9); PROTEIN,URINE NEGATIVE (NEGATIVE)
[2021-06-27 20:08] LABS: TSH (THYROID ANALYZER) 3.22 UIU/ML (0.35-4.94)
[2021-06-27 20:20] LABS: BACTERIA,URINE FEW /HPF
--- NOTE | 2021-06-27 20:35 | Diagnostic Imaging Report ---
INDICATION: Abdominal pain COMPARISONS: 11/12/2019 and [id number] TECHNIQUE: 4 radiographs of the chest and abdomen dated 06/27/2021. FINDINGS: The cardiac silhouette is at the upper limits of normal in size, though similar to the prior examination. No significant pulmonary vascular congestion. Decreased lung volumes with mild bibasilar interstitial opacities. Chronic elevation of the left hemidiaphragm. No significant pleural effusion. No pneumothorax. Post surgical changes within the cervical spine again seen. No acute osseous abnormality within the chest. Severe apex left curvature of the thoracolumbar spine. Gas and stool is noted throughout the colon, extending into the lower pelvis. No dilated loops of small bowel. No differential air-fluid levels. No free air. No suspicious calcifications overlying the renal shadows. Left hip arthroplasty. Scattered osseous degenerative changes without acute osseous abnormality. IMPRESSION: Low lung volumes with mild bibasilar atelectasis and/or pneumonitis. No evidence of bowel obstruction or free air. Additional postsurgical and chronic findings as described above, including significant apex left curvature of the spine. Dictated by: Dictated on workstation # [id number]
--- NOTE | 2021-06-27 21:14 | Diagnostic Imaging Report ---
PROCEDURE: CT abdomen and pelvis without contrast. TECHNIQUE: Multiple contiguous axial images were obtained through the abdomen and pelvis without the use of intravenous contrast. Auto Exposure Controls were utilized during the CT exam to meet ALARA standards for radiation dose reduction. DATE: June 27, 2021. COMPARISON: CT abdomen and pelvis October 18, 2018. INDICATION: 75-year-old female, abdominal pain, nausea, vomiting. FINDINGS: There are limitations for evaluation of the abdominal organs, neoplastic processes, abscess, and limited evaluation of the vasculature relating to the lack of intravenous contrast. There are mild linear opacities in the imaged lung bases most likely reflecting atelectasis and/or scarring. The heart is not enlarged. There is no pericardial effusion. The liver is unremarkable in size and contour. The gallbladder is very mildly distended. There is no CT apparent gallstone or evidence of acute cholecystitis. There is no biliary ductal dilation. Unremarkable limited noncontrast assessment of the pancreatic parenchyma. The spleen is normal in size. The adrenal glands are unremarkable. Limited noncontrast evaluation of the renal parenchyma is unremarkable. The urinary collecting systems are not distended. There is no identified renal or ureteral stone. The urinary bladder is grossly unremarkable in appearance. There is streak artifact from a left total hip prosthesis which does limit evaluation of portions of the pelvis. The intestinal tract is not distended. The appendix is unremarkable. There is no free intraperitoneal air. There is no drainable fluid collection. There is no free pelvic fluid. There are atherosclerotic calcifications. There is no identified abnormally enlarged lymph node in the abdomen or pelvis specifically meeting CT size criteria for adenopathy. There is severe osteoarthritis of the right hip. There are multilevel degenerative changes of the spine. There is scoliosis. There is a benign lucent lesion with internal fat involving the L3 vertebral body. There is no identified acute bony abnormality. IMPRESSION: CT ABDOMEN AND PELVIS. 1. No identified acute abnormality in the abdomen or pelvis. Dictated by: Dictated on workstation # [id number]
[2021-06-27] MEDS ORDERED: ONDA4TAB11 PO (21:25)
[2021-06-27] MEDS ORDERED: RX-ONDANSETRON 4 MG ODT (ZOFRAN) PPK #4 PO STA (21:28)
[2021-06-27 22:05] VITALS: BP 123/73
== END 2021-06-27 22:09 ==
LOC: EDUNIT# 18:40 → ER 18:47
DX: E86.0 Dehydration (principal); K52.9 Noninfective gastroenteritis and colitis, unspecified; G47.30 Sleep apnea, unspecified; I10 Essential (primary) hypertension; F03.90 Unspecified dementia, unspecified severity, without behavioral disturbance, psychotic disturbance, mood disturbance, and anxiety; F41.9 Anxiety disorder, unspecified; K21.9 Gastro-esophageal reflux disease without esophagitis; E03.9 Hypothyroidism, unspecified; F32.9 Major depressive disorder, single episode, unspecified; Z20.822 Contact with and (suspected) exposure to COVID-19; Z87.820 Personal history of traumatic brain injury; Z79.82 Long term (current) use of aspirin; Z79.899 Other long term (current) drug therapy; Z79.890 Hormone replacement therapy
CPT/HCPCS: 36415; 51701; 74022; 74176; 80053; 81000; 82150; 83690; 83735; 84443; 85025; 87636; 93005; 93041

== ENCOUNTER → 2021-07-07 | Outpatient (CLI) | payer MEDICARE, OTHER ==
[~2021-07-07] MED LIST changes: +ONDA4TAB11 PO; +RT-ALBUTEROL SULF 2.5 MG/3 ML PRE-MIX VIAL INH ONE
== END ==
LOC: RT 12:44
PROVIDERS: ATTEND Nurse Practitioner Family
DX: J45.909 Unspecified asthma, uncomplicated (principal)
CPT/HCPCS: 94060; 94726; 94729

== ENCOUNTER → 2021-07-18 | Outpatient (CLI) | payer MEDICARE, OTHER ==
[~2021-07-18] VITALS: Ht 162 cm; Wt 91.0 kg
[~2021-07-18] MED LIST changes: +CATHETER FLUSH 10 ML SYR IV PRN; +REGADENOSON 0.4 MG/5 ML SYR (LEXISCAN) IV ONE; -RT-ALBUTEROL SULF 2.5 MG/3 ML PRE-MIX VIAL INH ONE
[2021-07-18 09:24] VITALS: BP 148/85
--- NOTE | 2021-07-18 12:17 | Cardiology Stress Test Report ---
Stress Test Report Date of Procedure/Referring: Date of Procedure: Jul 18, 2021 Beverly Saeed Admitting Physician Harmony Hayward MD Indications: HTN Baseline Heart Rate: 87 Baseline Blood Pressure: Blood Pressure Systolic: 148 Blood Pressure Diastolic: 85 Baseline Vitals Vital Signs Date Time Temp Pulse Resp B/P (MAP) Pulse Ox O2 Delivery O2 Flow Rate FiO2 07/18/21 09:24 102 18 148/85 (106) 99 Room Air Baseline EKG: Baseline EKG: NSR Summary After explaining the procedure to the patient, she signed a consent and then brought to the stress nuclear laboratory. Patient received 0.4 mg Lexiscan for stress test, ECG, heart rate and blood pressure were monitored continuously. Resting and stress dose of radio tracer were injected, imaging was acquired and reviewed in short axis, horizontal long axis and vertical long axis views. TID: 0.85 SSS: 1 SDS: 1 EF: 68 1. Patient tolerated Lexiscan well 2. Breast attenuation with typical female pattern, no significant ischemia or infarction on SPECT images 3. Normal left ventricular size, EF 68% LOKI LEÓN MD Jul 18, 2021 12:17
== END ==
LOC: CARD 08:00
PROVIDERS: ATTEND Physician Assistant
DX: I10 Essential (primary) hypertension (principal); R07.9 Chest pain, unspecified
CPT/HCPCS: 78452; 93017; A9502

== ENCOUNTER → 2021-09-01 | Outpatient (CLI) | payer MEDICARE, OTHER ==
[~2021-09-01] MED LIST changes: -CATHETER FLUSH 10 ML SYR IV PRN; -REGADENOSON 0.4 MG/5 ML SYR (LEXISCAN) IV ONE
== END ==
LOC: SLEEP 19:36
PROVIDERS: ATTEND Nurse Practitioner Family
DX: G47.30 Sleep apnea, unspecified (principal); G47.50 Parasomnia, unspecified; G47.10 Hypersomnia, unspecified; G47.61 Periodic limb movement disorder; R06.00 Dyspnea, unspecified
CPT/HCPCS: 95810

== ENCOUNTER 2022-10-01 15:10 | Emergency (ER) | payer MEDICARE, OTHER ==
[~2022-10-01] VITALS: Ht 165 cm; Wt 90.0 kg
[~2022-10-01 15:10] MED LIST changes: -NYST15CR TP; +NYST15CR35 TP; +PEG15DRO14 OU; -PEG15DRO5 OU
--- NOTE | 2022-10-01 15:17 | ED Fall/Injury ---
General Stated Complaint: FALL Source: patient, EMS Exam Limitations: no limitations History of Present Illness Date Seen by Provider: Oct 01, 2022 Time Seen by Provider: 15:07 Initial Comments 76-year-old female via EMS from a nursing facility after an unwitnessed fall. She complained of low back pain and apparently hit her head on a cart. She states she was "shaky" for a minute or 2 after she fell. She believes her fall was purely mechanical as she went to turn around and caught her feet. She initially had pain in her left shoulder but states this is resolved. She does describe some dull pressure in her left low back. She denies any headache, vision changes, upper or lower extremity weakness numbness or tingling. Allergies and Home Medications Allergies Coded Allergies: Sulfa (Sulfonamide Antibiotics) (Verified Allergy, Unknown, 10/01/22) Patient Home Medication List Home Medication List Reviewed: Yes Alprazolam (Xanax) 0.25 Mg Tablet, 0.25 MG PO HS, (Reported) Entered as Reported by: CAN ESPANA on 07/03/19 1304 Alprazolam (Xanax) 0.25 Mg Tablet, 0.25 MG PO TID PRN for ANXIETY, (Reported) Entered as Reported by: CAN ESPANA on 07/03/19 1304 Aspirin (Aspirin EC) 81 Mg Tablet.dr, 81 MG PO DAILY, (Reported) Entered as Reported by: LILIANA ENGLISH on 09/05/15 1855 Bisacodyl (Dulcolax) 10 Mg Supp.rect, 10 MG RC DAILY PRN for CONSTIPATION-4TH LINE, (Reported) Entered as Reported by: CAN ESPANA on 07/03/19 1304 Bupropion HCl (Wellbutrin Xl) 300 Mg Tab.er.24h, 300 MG PO DAILY, (Reported) Entered as Reported by: CAN ESPANA on 07/03/19 1304 Chlorhexidine Gluconate (Chlorhexidine Gluconate) 473 Ml Mouthwash, MM DAILY PRN for GUM TISSUE, (Reported) Entered as Reported by: CAN ESPANA on 07/03/19 1304 Diclofenac Sodium (Voltaren) 100 Gm Gel..gram., 4 GM TP QID PRN for JOINT PAIN, (Reported) Entered as Reported by: CAN ESPANA on 07/03/19 1304 Guaifenesin (Mucinex) 600 Mg Tab.er.12h, 600 MG PO BID PRN for CONGESTION, (Reported) Entered as Reported by: CAN ESPANA on 07/03/191303 Lactulose (Lactulose) 10 Gm/15 Ml Solution, 30 ML PO BID PRN for CONSTIPATION- 3RD LINE, (Reported) Entered as Reported by: CAN ESPANA on 07/03/191303 Lactulose (Lactulose) 10 Gm/15 Ml Solution, 15 ML PO Q48H, (Reported) Entered as Reported by: CAN ESPANA on 07/03/191303 Latanoprost (Xalatan) 2.5 Ml Drops, 1 DROP OU HS, (Reported) Entered as Reported by: CAN ESPANA on 07/03/191303 Levothyroxine Sodium (Levothyroxine Sodium) 175 Mcg Tablet, 175 MCG PO DAILY, (Reported) Entered as Reported by: CAN ESPANA on 07/03/191303 Linaclotide (Linzess) 290 Mcg Capsule, 290 MCG PO DAILY, (Reported) Entered as Reported by: CAN ESPANA on 07/03/191303 Lisinopril (Lisinopril) 10 Mg Tablet, 10 MG PO DAILY, (Reported) Entered as Reported by: CAN ESPANA on 07/03/191303 Magnesium Hydroxide (Milk of Magnesia) 400 Mg/5 Ml Oral.susp, 30 ML PO DAILY PRN for CONSTIPATION-7TH LINE, (Reported) Entered as Reported by: CAN ESPANA on 07/03/191303 Melatonin (Melatonin) 3 Mg Tablet, 3 MG PO HS, (Reported) Entered as Reported by: CAN ESPANA on 07/03/191303 Memantine HCl (Namenda Xr) 28 Mg Cap.spr.24, 28 MG PO DAILY, (Reported) Entered as Reported by: CAN ESPANA on 07/03/191303 Naproxen Sodium (Aleve) 220 Mg Tablet, 220 MG PO BID PRN for PAIN-MILD, (Reported) Entered as Reported by: CAN ESPANA on 07/03/19 130 Naproxen Sodium (Aleve) 220 Mg Tablet, 220 MG PO HS, (Reported) Entered as Reported by: CAN ESPANA on 07/03/19 1304 Nitrofurantoin Monohyd/M-Cryst (Macrobid 100 mg Capsule) 100 Mg Capsule, 100 MG PO BID Prescribed by: NORM LUJAN on 09/26/192227 Nystatin (Nystatin) 15 Gm Cream..g., TP BID PRN for YEAST, (Reported) Entered as Reported by: CAN ESPANA on 07/03/19 1304 Omeprazole (Omeprazole) 20 Mg Capsule.dr, 20 MG PO DAILY, (Reported) Entered as Reported by: CAN ESPANA on 07/03/19 1304 Ondansetron (Ondansetron Odt) 4 Mg Tab.rapdis, 4 MG PO Q4H Prescribed by: NORM LUJAN on 06/27/212124 Peg 400/Hypromellose/Glycerin (Artificial Tears Drops) 15 Ml Drops, 1 DROP OU QID, (Reported) Entered as Reported by: CAN ESPANA on 07/03/19 1304 Plecanatide (Trulance) 3 Mg Tablet, 3 MG PO DAILY, (Reported) Entered as Reported by: CAN ESPANA on 07/03/19 1304 Polyvinyl Alcohol/Povidone (Artificial Tears Drops) 15 Ml Drops, 1 DROP OU Q3H PRN for DRY EYES, (Reported) Entered as Reported by: CAN ESPANA on 07/03/19 1409 Simethicone (Simethicone) 125 Mg Capsule, 125 MG PO QID PRN for GAS, (Reported) Entered as Reported by: CAN ESPANA on 07/03/19 1304 Review of Systems Review of Systems Constitutional: no symptoms reported Eyes: No Symptoms Reported Ears, Nose, Mouth, Throat: no symptoms reported Respiratory: no symptoms reported Cardiovascular: no symptoms reported Gastrointestinal: no symptoms reported Genitourinary: no symptoms reported Musculoskeletal: other (Low back pain) Skin: no symptoms reported Psychiatric/Neurological: No Symptoms Reported Past Lexgplu-Rfkfxg-Xnqsrp Hx Patient Social History Tobacco Use?: No Use of E-Cig and/or Vaping dev: No Substance use?: No Alcohol Use?: No Immunizations Up To Date Tetanus Booster (TDap): Unknown First/Initial COVID19 Vaccinat: 11/18 Second COVID19 Vaccination Felipe: 11/18 Seasonal Allergies Seasonal Allergies: Yes Past Medical History Surgery/Hospitalization HX: C-SPINE FUSION/SURGERY 2014 BILATERAL HAMMER TOE SURGERY LEFT KNEE SURGERY Surgeries: Yes Hysterectomy, Neurological, Orthopedic Respiratory: Yes (SLEEP APNEA PRIOR TO 100 LB WEIGHT LOSS) Sleep Apnea Currently Using CPAP: No Currently Using BIPAP: No Cardiac: Yes (MITRAL VALVE REGURGITATION; ORTHOSTATIC HYPOTENSION) Hypertension, Valvular Heart Disease Neurological: Yes (COGNITIVE COMMUNICATION DEFICIT/MILD COGNITIVE IMPAIRME NT;SUBDURAL HEMATOMA) Dementia, Neuropathy, Traumatic Brain Injury 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 Disorders: Yes Female 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 Disorders: 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, Menopausal Sexually Transmitted Disease: No HIV/AIDS: No Genitourinary: Yes (INCONTINENCE, URGENCY) Gastrointestinal: Yes Gastroesophageal Reflux, Chronic Constipation Musculoskeletal: Yes (CHRONIC NECK/BACK PAIN; C-2 FRACTURE; S1 FRACTURE) Degenerate Disk Disease, Arthritis, Back Injury, Chronic Back Pain, Fractures Endocrine: Yes (GRAVE'S DISEASE; HX OF OBESITY--LOST OVER 100 LBS) Hypothyroidsim HEENT: Yes Cataract, Dysphagia, Glaucoma Loss of Vision: Denies Hearing Impairment: Hard of Hearing Cancer: No Psychosocial: Yes (PANIC ATTACKS) Sleep Difficulties, Anxiety, Depression Integumentary: No (yeast infection under left breast) Blood Disorders: No Adverse Reaction/Blood Tranf: No Family Medical History Reviewed Nursing Family Hx Cardiovascular disease 19 FATHER 19 MOTHER Diabetes mellitus 19 MOTHER Myocardial infarction 19 FATHER 19 MOTHER Heart Disease, Hypertension ADDITIONAL PMH: -HAD A FALL 07/11/19 AND SUSTAINED A C-2 FRACTURE AND SUBDURAL HEMATOMA, AND S-3 FRACTURE--NO SURGERY DONE. -PT DID HAVE PREVIOUS CERVICAL SPINE FUSION IN 2014 FOR CHRONIC NECK PAIN -CHRONIC NECK AND BACK PAIN -CHRONIC LEFT KNEE PAIN -CHRONIC GENERALIZED WEAKNESS, POOR COORDINATION AND FREQUENT FALLS -SPASMODIC TORTICOLLOSIS -SPEECH IMPEDIMENT PT IS DNR Physical Exam Vital Signs Vital Signs - First Documented 10/01/22 15:10 Temp 36.4 Pulse 94 Resp 18 B/P (MAP) 147/86 (106) Pulse Ox 98 O2 Delivery Room Air Capillary Refill : Height, Weight, BMI Height: 5'5.00" Weight: 158lbs. 0.0oz. [id number]; 34.67 BMI Method: General Appearance: WD/WN, no apparent distress HEENT: normal ENT inspection, TMs normal, pharynx normal Neck: non-tender, full range of motion, supple, normal inspection Cardiovascular: regular rate, rhythm, no edema, no gallop, no JVD, no murmur Respiratory: chest non-tender, lungs clear, normal breath sounds, no respiratory distress, no accessory muscle use Gastrointestinal: normal bowel sounds, non tender, soft, no organomegaly Back: normal inspection, vertebral tenderness (Mild tenderness palpation lumbar spine at L3-L4 region. No step-offs or deformity. No bruising.) Extremities: normal range of motion, non-tender, normal inspection, no pedal edema, normal capillary refill Neurologic/Psychiatric: alert, normal mood/affect, oriented x 3 Skin: normal color, warm/dry Lymphatic: no adenopathy Progress/Results/Core Measures Results/Orders My Orders Orders - FIDEL BO DO Ct Head Wo (10/01/22 15:12) Ct Lumbar Spine Wo (10/01/22 15:12) Vital Signs/I&O 10/01/22 15:10 Temp 36.4 Pulse 94 Resp 18 B/P (MAP) 147/86 (106) Pulse Ox 98 O2 Delivery Room Air Departure Communication (Admissions) Patient is hemodynamically stable with no red flag symptoms. CT brain negative, obtain because of her age and head injury. CT lumbar spine in the area of her pain is negative. No other obvious injuries. Sounds like she had a pretty mechanical fall per her report no indication for lab work, EKG. Discharged in stable condition with supportive care Impression Primary Impression: Fall from standing Qualified Codes: W19.XXXA - Unspecified fall, initial encounter Additional Impression: Low back pain Qualified Codes: M54.50 - Low back pain, unspecified Disposition: 01 HOME, SELF-CARE Condition: Stable Departure-Patient Inst. Referrals: CHIN SHULTZ MD (PCP/Family) Primary Care Physician Patient Instructions: Low Back Pain in Adults, Preventing Falls ED Add. Discharge Instructions: You were seen in the emergency department today after a fall. CT scan of your head and neck are negative. Use ibuprofen and Tylenol as needed for pain. Return to the emergency department for any severe concerns. Follow-up with your primary doctor for any nonemergent needs. FIDEL BO DO Oct 01, 2022 15:17
--- NOTE | 2022-10-01 15:42 | Diagnostic Imaging Report ---
PROCEDURE: CT head without contrast. TECHNIQUE: Multiple contiguous axial images were obtained through the brain without the use of intravenous contrast. Auto Exposure Controls were utilized during the CT exam to meet ALARA standards for radiation dose reduction. INDICATION: Head injury, trauma. COMPARISON: 11/12/2019. FINDINGS: No intracranial hyperdense hemorrhage or space-occupying mass. No hydrocephalus or midline shift. Mccain-white matter differentiation is well-preserved. Basilar cisterns are widely patent. No skull fracture. Paranasal sinuses and mastoid air cells are clear. IMPRESSION: No acute intracranial process or skull fracture. Dictated by: Dictated on workstation # [id number]
--- NOTE | 2022-10-01 15:46 | Diagnostic Imaging Report ---
PROCEDURE: CT lumbar spine without contrast. TECHNIQUE: Multiple contiguous axial images were obtained through the lumbar spine without the use of intravenous contrast. Sagittal and coronal reformations were then performed. Auto Exposure Controls were utilized during the CT exam to meet ALARA standards for radiation dose reduction. INDICATION: Back pain after fall. COMPARISON: None available. FINDINGS: Levoscoliosis of the lumbar spine is present. No acute fracture. No traumatic subluxation. No fracture within the sacrum. SI joints are in normal alignment. Multilevel degenerative disc disease is present, but there does not appear to be any sites of high-grade spinal canal stenosis. Atherosclerotic aorta. IMPRESSION: No fracture within the lumbar spine. Dictated by: Dictated on workstation # [id number]
[2022-10-01] MEDS ORDERED: ACETAMINOPHEN 500 MG TAB (TYLENOL) PO ONE (16:00)
[2022-10-01 16:17] VITALS: BP 163/95
== END 2022-10-01 16:17 | disposition home or self-care (01) ==
LOC: EDUNIT# 15:10 → ER 15:11
DX: M54.50 Low back pain, unspecified (principal); Z98.890 Other specified postprocedural states; W18.30XA Fall on same level, unspecified, initial encounter
CPT/HCPCS: 70450; 72131

== ENCOUNTER 2023-01-25 13:42 | Outpatient (RCR) | payer MEDICARE, OTHER | END 2023-01-26 | disposition home or self-care (01) | PROVIDERS: ATTEND Family Medicine | DX: R32 Unspecified urinary incontinence (principal); I10 Essential (primary) hypertension ==

== ENCOUNTER 2023-02-20 13:39 | Outpatient (RCR) | payer MEDICARE, OTHER | END 2023-02-25 | disposition home or self-care (01) | PROVIDERS: ATTEND Family Medicine | DX: R32 Unspecified urinary incontinence (principal) ==

== ENCOUNTER → 2023-02-27 | Outpatient (CLI) | payer MEDICARE, OTHER | LOC: CARD 13:21 | PROVIDERS: ATTEND Internal Medicine Cardiovascular Disease | DX: I11.9 Hypertensive heart disease without heart failure (principal) | CPT/HCPCS: 93306 ==

== ENCOUNTER 2023-03-20 09:45 | Outpatient (RCR) | payer MEDICARE, OTHER ==
[~2023-03-20 09:45] MED LIST changes: -LACT10SO33 PO; +LACT10SO74 PO
== END 2023-03-28 | disposition home or self-care (01) ==
PROVIDERS: ATTEND Family Medicine
DX: R32 Unspecified urinary incontinence (principal)

== ENCOUNTER → 2023-04-09 | Outpatient (CLI) | payer MEDICARE, OTHER ==
[~2023-04-09] MED LIST changes: +CATHETER FLUSH 10 ML SYR IVP PRN; +REGADENOSON 0.4 MG/5 ML SYR (LEXISCAN) IV ONE
[2023-04-09 09:12] VITALS: BP 144/81
--- NOTE | 2023-04-09 12:03 | Cardiology Stress Test Report ---
Stress Test Report Date of Procedure/Referring: Date of Procedure: Apr 09, 2023 PCP Chin Hayward MD Admitting Physician Admitting Physician: Attending Physician: Sachin Zapata MD Baseline Heart Rate: 84 Baseline Blood Pressure: Blood Pressure Systolic: 144 Blood Pressure Diastolic: 81 Baseline Vitals Vital Signs Date Time Temp Pulse Resp B/P (MAP) Pulse Ox O2 Delivery O2 Flow Rate FiO2 04/09/23 09:12 84 144/81 (102) Baseline EKG: Baseline EKG: NSR Summary After explaining the procedure to the patient, she signed a consent and then brought to the stress nuclear laboratory. Patient received 0.4 mg Lexiscan for stress test, ECG, heart rate and blood pressure were monitored continuously. Resting and stress dose of radio tracer were injected, imaging was acquired and reviewed in short axis, horizontal long axis and vertical long axis views. TID: 0.51 SSS: 4 SDS: 3 EF: 63 Patient tolerated Lexiscan well Extracardiac attenuation affecting the quality of the images, mild decrease uptake at the base of the anterior wall, no significant ischemia or infarction on SPECT images Normal left ventricular size, ejection fraction 63% Transient ischemic dilatation value is inaccurate due to the extracardiac attenuation Copy Copies To 1: CHIN HAYWARD MD, BASHAR J MD Apr 09, 2023 12:02
== END ==
LOC: CARD 07:30
PROVIDERS: ATTEND Internal Medicine Cardiovascular Disease
DX: I10 Essential (primary) hypertension (principal); I25.10 Atherosclerotic heart disease of native coronary artery without angina pectoris
CPT/HCPCS: 78452; 93017; A9502

== ENCOUNTER 2023-04-10 08:32 | Outpatient (RCR) | payer MEDICARE, OTHER ==
[~2023-04-10 08:32] MED LIST changes: -CATHETER FLUSH 10 ML SYR IVP PRN; -REGADENOSON 0.4 MG/5 ML SYR (LEXISCAN) IV ONE
== END 2023-04-10 10:09 | disposition home or self-care (01) ==
PROVIDERS: ATTEND Family Medicine
DX: R32 Unspecified urinary incontinence (principal)

== ENCOUNTER → 2023-05-28 | Outpatient (RCR) | payer MEDICARE, OTHER | END | disposition home or self-care (01) | PROVIDERS: ATTEND Family Medicine | DX: R26.81 Unsteadiness on feet (principal) ==

== ENCOUNTER 2023-06-28 10:01 | Outpatient (RCR) | payer MEDICARE, OTHER | END 2023-06-28 10:25 | disposition home or self-care (01) | PROVIDERS: ATTEND Family Medicine | DX: R26.81 Unsteadiness on feet (principal) ==